=== PATIENT | female | born 1945 | race Caucasian/White ===

== ENCOUNTER 2023-09-21 12:52 | Inpatient (IN) | payer OTHER, SELFPAY ==
--- NOTE | ~2023-09-21 | CT_ITS ---
EXAMINATION: CT head/brain wo IV con CLINICAL INFORMATION: auditory hallucinations, assess for vascular dementia COMPARISON: None. TECHNIQUE: Contiguous axial imaging was performed from the skull base to vertex without intravenous contrast. Sagittal and coronal reformatted images were obtained. This CT examination was performed using dose optimization techniques as appropriate, variously including the following: * Automated exposure control * Adjustment of mA and/or kV according to patient size (this includes techniques or standardized protocols for targeted exams where dose is matched to indication/reason for exam; i.e. extremities or head) Use of iterative reconstruction technique DLP: 705 mGycm FINDINGS: Mild to moderate global cerebral volume loss with asymmetric prominence of the left hemispheric sulci which may reflect a slight predilection for the left cerebral hemisphere. There is no abnormal attenuation within the brain parenchyma. No territorial loss of huitron-white differentiation. No acute intracranial hemorrhage or extra-axial fluid collection. No mass lesion, significant mass effect, or herniation pattern. Asymmetrically prominent lateral right cerebellar folia may reflect an arachnoid cyst. Circumferential mural calcifications of the carotid siphons. Lens replacements. Patchy paranasal sinus mucosal disease. Some aerosolized secretions in the right sphenoid sinus and posterior right ethmoid air cell. No mastoid effusion. Osseous structures are intact. CT/CT head/brain wo IV con IMPRESSION: 1. Mild to moderate global cerebral volume loss with asymmetric prominence of the left hemispheric sulci which may reflect a slight predilection for the left cerebral hemisphere. Mild chronic microangiopathic changes. 2. Asymmetrically prominent lateral right cerebellar folia may reflect an arachnoid cyst. 3. Some aerosolized secretions in the right sphenoid sinus and posterior right ethmoid air cell can be correlated clinically for acute sinusitis.
[2023-09-21 12:57] VITALS: BP 110/66; PULSE 118; RESP 19; TEMP 36.6; O2SAT 95; BMI 24.1
--- NOTE | 2023-09-21 12:57 | ED_ITS ---
HPI - General Adult General Chief complaint: Psychiatric Symptoms Stated complaint: Paranoia, delusions Time Seen by Provider: 09/21/23 13:18 Source: patient Mode of arrival: ambulatory Limitations: no limitations History of Present Illness ED Provider: Herb Chambers PA-C HPI narrative: 78 year old female with PMH of psychotic depression, visual/auditory hallucinations presents to the ED via her daughter for increased auditory hallucinations, paranoia and delusions. Patient states that she is has been having increased auditory hallucinations over the last few weeks, and that they voices seem to be having conversations around her but not with her. She states that she is not endorsing any SI or HI at the moment, and that she never has in the past. She states that yesterday, her living facility was having a alliance party at night and she heard a voice tell her that someone was coming to pick her up outside. She was found outside by staff waiting for a person to get her, and staff informed her that no one was coming to pick her up. Patient states that after that she felt very confused, and that she is sick of hearing the voices . She has said she sometimes imagines her house on fire, and can see it burning. She states she flores snot want that to happen is gets nervous when she imagines that. She is currently taking medications, but med reconciliation still needs to be performed. patient is unaware of all the medications she currently takes, and informed me that her daughter (who is a nurse) would be able to help. The patient was admitted to [facility] 3-4 weeks ago for the same symptoms, and medications were adjusted. She does not complain of any other symptoms besides visual/auditory hallucinations. Denies chest pain, chest tightness, abdominal pain, N/V/D denied. Denies urinary pain, no urgency/frequency. Patient states that she occasionally has migraines but she usually will take a few Advil and sleep the whole day and they will go away . She has no physical or medical complaints at this time besides the auditory hallucinations. Daughter has arrived to ED and provided extra information. Daughter states that patient lives in a independent shelter facility. States that symptoms began about 7-8 years ago, and would complain of upstairs neighbors making too much noise and would not be able to sleep at night. She states that the patient had slept in the car 7-8 years ago to avoid the noisy neighbors, although there were no neighbors upstairs. States symptoms have gotten worse over the last 7-8 years, and that there was no formal diagnoses for years until last year when she was hospitalized at [facility] last year and was diagnosed with psychotic depression. Daughter believes that patient has had depression in her 30s and 40s, but states that patient was very self sufficient, strong and independent throughout her whole life. No history of other mental illnesses. Daughter stated willingness to admit patient to geriatric psych floor for better management and diagnoses. Daughter is providing list of medications to staff. Wellbutrin was weaned off recently and the patient is on Zyprexa. States medication adjustments were changed and overall decreased since admission to [facility]. complaint: hallucinations Relieving factors: none Exacerbating factors: none Related Data Allergies Allergy/AdvReac Type Severity Reaction Status Date / Time No Known Allergies Allergy Verified 09/21/23 13:00 Review of Systems 2 Review of Systems: Yes all other systems are reviewed and are negative [facility] Social History Social History Advance Directives: Yes Advance Directives Information Provided: Yes Advance Directives on File: No Do you have a plan to hurt others: No Plan Physical Exam ED Vital Signs: Vital Signs - 24 hr 09/21/23 12:57 Temperature 97.8 F Pulse Rate 118 H Respiratory Rate 19 Blood Pressure 110/66 Pulse Oximetry 95 Oxygen Delivery Method Room Air BMI result Body Mass Index 24.1 Appearance: Alert. Oriented X3. No acute distress. Head: normocephalic, atraumatic. Eyes: Pupils equal, round and reactive to light. ENT: Pharynx normal. No tonsillar swelling or exudate. Neck: Normal inspection. Neck supple. CVS: Tachycardic, normal rhythm. Pulses normal. Respiratory: No respiratory distress. Breath sounds normal. Abdomen: Soft and nontender. +BS x4 Skin: Skin warm and dry. Normal skin color. Normal skin turgor. No rashes. Extremities: No lower extremity edema. No joint swelling. Neuro/psych: Oriented X 3. No motor deficit. No sensory deficit. CN II-XII intact. Normal speech and cognition. Endorses auditory hallucinations of voices having conversations around her. Denies and SI or HI thoughts. Voices are not telling her to do anything or to harm herself or others. Endorses visual hallucinations once in a while. Good insight. makes eye contact. Course Course Course Narrative: This is a Rapid Medical Examination (RME) performed by Tiara Langford PA-C in triage. Full HPI, ROS, assessment and treatment plan per primary provider in the Main ED. 78 yo female hx of psychotic depression (admitted to [facility] last year, started on olanzapine) here w/ auditory hallucinations x1 mo. daughter reports patient is convinced the police are out to get her. patient has not been eating. seen at [facility] 3-4 wks ago for same w/ medication adjustments. no improvement in symptoms. the voices are not telling her to harm herself or others. denies SI/HI. denies etoh consumption, illicit drug use. denies physical complaints. no urinary symptoms. + well appearing in triage. exam nonfocal. satting 91-93% on RA, does not complaint of SOB. lungs clear. tachy to 118. reports feeling nervous. Plan: labs, UA, utox, ekg ordered Medical Decision Making Medical Decision Making MDM Narrative: 78-year-old female with a history of psychotic depression and recent inpatient psychiatric care with medication adjustments who presents to the ER from her independent living for evaluation of worsening auditory hallucinations and paranoia. Her daughter reports delusions and overall decline. She does not feel she is safe living independently at home. Her medications were recently titrated down while she was inpatient. Patient has been having increased hallucinations and delusions. On arrival to the ER she is awake and alert, endorsing auditory hallucinations. She is not suicidal or homicidal. She was tachycardic to the 110s. Daughter reports that she did not eat or drink for 24 hours because she was paranoid and afraid. She is tolerating p.o. now. She does not seem to be reacting to any internal stimuli at this time. Daughter is at the bedside to help provide history. Her lab workup showed no leukocytosis, no major metabolic derangement. She was found to have urinary tract infection. This could be contributing although unlikely to be the sole cause of her decline. Will start her on Ceftin. No evidence of sepsis. Patient was seen by the care team who is recommending inpatient level of psychiatric care. Agree with disposition. Patient placed in physician observation pending bed surgeon placement. Differential Diagnosis Differential Diagnoses: The differential diagnosis associated with the presentation includes substance induced mood disorder, acute psychosis, schizophrenia, schizoaffective disorder, PTSD, bipolar disorder, major depression with psychotic features, dementia, delirium, polypharmacy, brain tumor Admission/Observation Consideration of admission/observation: Escalation of care including admission/observation considered Consult Healthcare Provider Management of the patient was discussed with: Behavioral Health Provider Lab Data [facility] Lab Attestation statement: I reviewed the patient's lab results. No leukocytosis, UA is positive for infection 09/21/23 13:20 09/21/23 13:20 Labs: Lab Results 09/21/23 Range/Units 13:20 WBC 5.8 (4.8-10.8) X10*3/uL RBC 3.92 L (4.20-5.50) X10*6/uL Hgb 12.5 (12.0-16.0) g/dl Hct 38.3 (37.0-47.0) % MCV 97.7 (80.0-98.0) fL MCH 31.9 (27.0-33.0) pg MCHC 32.6 (31.0-35.0) g/dl RDW 14.4 (11.0-16.0) % Plt Count 317 (160-400) X10*3/uL MPV 9.8 (9.4-12.3) fL Immature Gran % (Auto) 0.3 (0.0-0.4) % Neut % (Auto) 53.7 (45-73) % Lymph % (Auto) 31.8 (20-40) % Gem % (Auto) 10.4 (2-11) % Eos % (Auto) 2.6 (0-4) % Baso % (Auto) 1.2 (0-2) % Lymph # (Auto) 1.8 (1.2-4.9) X10*3/uL Gem # (Auto) 0.6 (0.1-1.2) X10*3/uL Eos # (Auto) 0.2 (0.0-0.4) X10*3/uL Baso # (Auto) 0.1 (0.0-0.2) X10*3/uL Abs Immat Gran (auto) 0.02 (0.00-0.03) X10*3/uL Absolute Neuts (auto) 3.1 (2.0-8.3) x10*3/uL Absolute Nucleated RBC 0.000 (0.0-0.012) X10*3/uL Nucleated RBC % (auto) 0.0 (0.0-0.2) /100WBC Sodium 143 (135-145) mmol/L Potassium 4.2 (3.3-5.1) mmol/L Chloride 109 H (96-108) mmol/L Carbon Dioxide 24 (22-29) mmol/L Anion Gap 14 (12-20) BUN 12 (9-16) mg/dL Creatinine 1.24 (0.5-1.4) mg/dL Estim Creat Clear Calc 27.1 Estimated GFR 42 Random Glucose 157 H (60-115) mg/dL Calcium 9.9 (8.4-10.2) mg/dL Magnesium 2.1 (1.6-2.6) mg/dL Total Bilirubin 0.4 (0.0-1.0) mg/dL AST 18 (5-31) U/L ALT 17 (0-31) U/L Alkaline Phosphatase 121 H (39-117) U/L Total Protein 7.5 (6.5-8.0) g/dL Albumin 4.2 (3.5-5.0) g/dL Lipase 20 (8-78) U/L Urine Color Dark Yellow Urine Appearance Cloudy Urine pH 5.5 (5.0-9.0) Ur Specific [place] 1.020 (1.005-1.025) Urine Protein 30 (1+) H (Neg-Trace) mg/dL Urine Glucose (UA) Negative (Negative) mg/dL Urine Ketones Trace (Negative) mg/dL Urine Blood Negative (Negative) Urine Nitrite Negative (Negative) Ur Leukocyte Esterase Moderate (2+) H (Negative) Urine RBC 0-2 (0-2) /HPF Urine WBC 6-10 H (0-5) /HPF Ur Squamous Epith Cells 6-10 (0-2) /HPF Urine Bacteria None Seen (None Seen) Hyaline Casts >20 (0-2) /LPF Granular Casts Present Urine Opiates Screen Not Detected (Not Detect) Ur Buprenorphine Scrn Not Detected (Not Detect) ng/mL Ur Oxycodone Screen Not Detected (Not Detect) ng/mL Urine Methadone Screen Not Detected (Not Detect) ng/mL Urine Fentanyl Screen Not Detected (Not Detect) Ur Barbiturates Screen Not Detected (Not Detect) Ur Phencyclidine Scrn Not Detected (Not Detect) Ur Amphetamines Screen Not Detected (Not Detect) U Benzodiazepines Scrn Not Detected (Not Detect) Urine Cocaine Screen Not Detected (Not Detect) U Marijuana (THC) Screen Not Detected (Not Detect) Ethyl Alcohol < 10 mg/dL Independent Interpretation I performed an independent interpretation of an: EKG Interpretation: EKG with sinus tachycardia, ventricular rate 116 beats per minute, no ST segment elevations or depressions, normal QTC Independent Historian Clinical information obtained from an independent historian. History obtained from or confirmed by: Other (Adult daughter at the bedside) External Record Review External record reviewed: Outpatient record Tests considered The following testing was considered but not selected: CT of the head was considered however she does have a history of this type of behavior for the last several years, doubt organic cause Prescription Management I considered prescription management with: Antibiotic and Other (Antipsychotic) Chronic Conditions Patient?s care impacted by: Other (Psychotic depression) Social Determinants Patient?s care significantly limited by Social Determinants of Health including: Problems related to primary support group Critical Care Time Critical Care Time Critical Care Time: No Discharge Plan Discharge Clinical Impression: Psychotic depression Patient Disposition: Still a Patient Print Language: Cape Verdean
--- NOTE | 2023-09-21 13:01 | ECG_ITS ---
Test Reason : tacky Blood Pressure : / mmHG Vent. Rate : 116 BPM Atrial Rate : 116 BPM P-R Int : 134 ms QRS Dur : 074 ms QT Int : 302 ms P-R-T Axes : 056 009 032 degrees QTc Int : 419 ms Sinus tachycardia with Premature supraventricular complexes Cannot rule out Anterior infarct , age undetermined Abnormal ECG No previous ECGs available Referred By: Di Langford Electronically Signed By:Denzel Smith
[2023-09-21 13:29] LABS: MANUAL DIFF FLAG NO
[2023-09-21 13:34] LABS: Basophils Absolute Auto 0.1 X10*3/uL (0.0-0.2); Basophils Percent Auto 1.2 % (0-2); Eosinophils Absolute Auto 0.2 X10*3/uL (0.0-0.4); Eosinophils Percent Auto 2.6 % (0-4); Hematocrit 38.3 % (37.0-47.0); Hemoglobin 12.5 g/dl (12.0-16.0); Imm Gran Abs Auto 0.02 X10*3/uL (0.00-0.03); Imm Gran Pct Auto 0.3 % (0.0-0.4); Lymphocytes Absolute Auto 1.8 X10*3/uL (1.2-4.9); Lymphocytes Percent Auto 31.8 % (20-40); Mean Corpuscular HGB Conc 32.6 g/dl (31.0-35.0); Mean Corpuscular Hemoglobin 31.9 pg (27.0-33.0); Mean Corpuscular Volume 97.7 fL (80.0-98.0); Mean Platelet Volume 9.8 fL (9.4-12.3); Monocytes Absolute Auto 0.6 X10*3/uL (0.1-1.2); Monocytes Percent Auto 10.4 % (2-11); Neutrophils Absolute Auto 3.1 x10*3/uL (2.0-8.3); Neutrophils Percent Auto 53.7 % (45-73); Platelet Count 317 X10*3/uL (160-400); Red Blood Count 3.92 X10*6/uL (4.20-5.50); Red Cell Distribution Width 14.4 % (11.0-16.0); White Blood Count 5.8 X10*3/uL (4.8-10.8)
[2023-09-21 13:35] LABS: Appearance Urine Cloudy; Color Urine Dark Yellow; Glucose Urine UA Negative (Negative); Leukocyte Esterase Urine Moderate (2+) (Negative); Nitrite Urine Negative (Negative); PH 5.5 (5.0-9.0); UMIC TRIGGER UACC YES; Urine Blood Negative (Negative); Urine Ketones Trace mg/dL (Negative); Urine Protein 30 (1+) mg/dL (Neg-Trace)
[2023-09-21 13:48] LABS: Amphetamine Screen Urine Not Detected (Not Detect); Bacteria Urine None Seen (None Seen); Barbiturates, Urine Not Detected (Not Detect); Benzodiazepines Screen Urine Not Detected (Not Detect); Buprenorphine Scr Not Detected (Not Detect); Cannabinoid Screen Urine Not Detected (Not Detect); Cocaine Screen Urine Not Detected (Not Detect); Fentanyl, urine Not Detected (Not Detect); Granular Casts Urine Present; Hyaline Casts Urine >20 /LPF (0-2); Methadone Screen, Urine Not Detected (Not Detect); Opiate Screen Urine Not Detected (Not Detect); Oxycodone Screen Urine Not Detected (Not Detect); Phencyclidine Screen Urine Not Detected (Not Detect); RBC Urine 0-2 /HPF (0-2); UACC Culture Trigger YES
[2023-09-21 13:53] LABS: Alanine Aminotransferase 17 U/L (0-31); Albumin Level 4.2 g/dL (3.5-5.0); Alkaline Phosphatase 121 U/L (39-117); Anion Gap 14 (12-20); Aspartate Amino Transferase 18 U/L (5-31); Bilirubin Total 0.4 mg/dL (0.0-1.0); Blood Urea Nitrogen 12 mg/dL (9-16); Calcium 9.9 mg/dL (8.4-10.2); Carbon Dioxide 24 mmol/L (22-29); Chloride 109 mmol/L (96-108); Creatinine Clr Calc Pharmacy 27.1; Estimated Glomerular Filt Rate 42; Ethanol < 10 mg/dL; Glucose Random 157 mg/dL (60-115); Lipase 20 U/L (8-78); Magnesium 2.1 mg/dL (1.6-2.6); Potassium 4.2 mmol/L (3.3-5.1); Sodium 143 mmol/L (135-145); Total Protein 7.5 g/dL (6.5-8.0)
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
[2023-09-21] MEDS: cefuroxime axetiL 250 MG TABLET PO (16:58)
[2023-09-21 17:42] VITALS: BP 134/89; PULSE 85; RESP 18; TEMP 36.2; O2SAT 94
--- NOTE | 2023-09-21 18:27 | PC.NURSE ---
Late entry: Patient calm and cooperative with microsoft exchange architect, verbalizes concerns over hearing voices talking in the back of her head. patient denies SI/HI/VH. Patient is alert and oriented x3, skin pwd, respirations even and unlabored, easily directable. Patient offers no complaints to this RN. Aware of plan of care for inpatient admission
[2023-09-21 18:40] VITALS: BP 127/75; PULSE 111; RESP 16; TEMP 35.9; O2SAT 96
[2023-09-21 18:54] VITALS: BMI 24.2
--- NOTE | 2023-09-21 22:40 | PC.ADMIT ---
Patient is an 78 year old female admitted to S1 on 09/21/2023 at 1830 from [facility] ED on a CV for increased auditory hallucinations, paranoia and delusions. The night prior to coming in, patient admits to hearing a voice telling her that they were coming to pick her up, and she was found standing outside of her retirement facility. Patient has had 2 inpatient hospitalizations for the same symptoms, most recent at [facility] about one month ago, and [facility] in 2022. Patient brought to unit, vital signs and skin check and changeover completed by previous shift. Patient is visible in the milieu. She is hard of hearing, reports that her hearing aids are not with her. She also has glasses and upper dentures. She is endorsing anxiety and depression. Denies SI/HI/AH/VH currently. She is gladys for safety. She is cooperative with the admission process, soft spoken. Signed releases of information for daughter, PCP, psychiatrist, etc. Oriented to milieu.
[2023-09-22 08:00] VITALS: BP 126/68; PULSE 101; RESP 18; TEMP 36.4; O2SAT 95
[2023-09-22 08:27] LABS: Alanine Aminotransferase 18 U/L (0-31); Albumin Level 4.3 g/dL (3.5-5.0); Alkaline Phosphatase 121 U/L (39-117); Anion Gap 16 (12-20); Aspartate Amino Transferase 18 U/L (5-31); Bilirubin Total 0.4 mg/dL (0.0-1.0); Blood Urea Nitrogen 14 mg/dL (9-16); Calcium 9.9 mg/dL (8.4-10.2); Carbon Dioxide 26 mmol/L (22-29); Chloride 108 mmol/L (96-108); Cholesterol 181 mg/dL (<200); Creatinine Clr Calc Pharmacy 31.8; Estimated Glomerular Filt Rate 50; Glucose Fasting 112 mg/dL (60-99); HDL Cholesterol 83 mg/dL (>40); LDL Cholesterol Calculated 80 mg/dL (<100); Potassium 4.6 mmol/L (3.3-5.1); Sodium 145 mmol/L (135-145); Total Protein 7.6 g/dL (6.5-8.0); Triglycerides 90 mg/dL (<150)
[2023-09-22] MEDS: OLANZapine 10 MG TABLET PO ×2 (09:42→21:22)
[2023-09-22] MEDS: DULoxetine HCl 60 MG CAPSULE.DR PO (09:42)
[2023-09-22] MEDS: Ascorbic Acid 500 MG TABLET 1000 MG PO (09:42)
--- NOTE | 2023-09-22 09:47 | HO.PSYADMNOT ---
[facility] Date of Service: 09/22/23 Chief Complaint: Psychosis Sources of Information: patient interviewed, chart reviewed and crisis/core team assessment reviewed HPI Subjective Notes: Gruber Warning and Section 12B Narrative: The patient is an 78-year-old female, , mother of 3 adult children, living in an assisted living facility referred over emergency room due to auditory hallucinations. Apparently, the patient was admitted at [facility] a few weeks ago for similar presentation her medications were adjusted. The day of the admission to the hospital, the patient went out on the porch since the voices were telling her that she is going to be picked up. Staff came and she was confused. She was complaining that she had been hearing voices talking among themselves but not about her and she had been very tired about this symptom. Later on, her daughter came and reported that the patient lives in independent senior facility her symptoms start 7 or 8 years ago and she used to have some symptoms that they are bearable but in the last months and has been worse. On interview, the patient reported that she is not hearing voices at this moment, she is pleasant cooperative she acknowledged that in the past more than 30 years ago she suffered from depression. She is a very poor historian unable to provide more details but so far she is able to contract for safety. Past Psychiatric History: The patient reported that she suffered from depression on her 30s. She has never been admitted into the hospital for psychiatric reasons until recently. Apparently on 2022 she was admitted at [facility] for auditory hallucinations. Her psychotic symptoms have started 7 or 8 years ago. Medical Evaluation Reviewed: Yes PMFSH Family History: Denies Social History: The patient is the oldest of 2 children, her milestones were achieved at expected duration she attended regular school, she graduated from high school. She got at the age of 15 and she got , she is the mother of 3 adult children. She lives in an independent living facility. Substance History: Denies Trauma History: Denies Diagnostics Vital Signs (24Hr): Vital Signs - 24 hr 09/21/23 12:57 09/21/23 17:42 09/21/23 18:40 Temperature 97.8 F 97.2 F 96.7 F L Pulse Rate 118 H 85 111 H Respiratory Rate 19 18 16 Blood Pressure 110/66 134/89 127/75 Pulse Oximetry 95 94 96 Oxygen Delivery Method Room Air Room Air Room Air BMI result Body Mass Index 24.2 Labs 09/21/23 13:20 09/22/23 07:56 Labs: Laboratory Results - last 48 hr 09/21/23 09/22/23 13:20 07:56 WBC 5.8 RBC 3.92 L Hgb 12.5 Hct 38.3 MCV 97.7 MCH 31.9 MCHC 32.6 RDW 14.4 Plt Count 317 MPV 9.8 Immature Gran % (Auto) 0.3 Neut % (Auto) 53.7 Lymph % (Auto) 31.8 [place] % (Auto) 10.4 Eos % (Auto) 2.6 Baso % (Auto) 1.2 Lymph # (Auto) 1.8 [place] # (Auto) 0.6 Eos # (Auto) 0.2 Baso # (Auto) 0.1 Abs Immat Gran (auto) 0.02 Absolute Neuts (auto) 3.1 Absolute Nucleated RBC 0.000 Nucleated RBC % (auto) 0.0 Sodium 143 145 Potassium 4.2 4.6 Chloride 109 H 108 Carbon Dioxide 24 26 Anion Gap 14 16 BUN 12 14 Creatinine 1.24 1.06 Estim Creat Clear Calc 27.1 31.8 Estimated GFR 42 50 Random Glucose 157 H Fasting Glucose 112 H Calcium 9.9 9.9 Magnesium 2.1 Total Bilirubin 0.4 0.4 AST 18 18 ALT 17 18 Alkaline Phosphatase 121 H 121 H Total Protein 7.5 7.6 Albumin 4.2 4.3 Triglycerides 90 Cholesterol 181 LDL Cholesterol, Calc 80 HDL Cholesterol 83 Lipase 20 Urine Color Dark Yellow Urine Appearance Cloudy Urine pH 5.5 Ur Specific [place] 1.020 Urine Protein 30 (1+) H Urine Glucose (UA) Negative Urine Ketones Trace Urine Blood Negative Urine Nitrite Negative Ur Leukocyte Esterase Moderate (2+) H Urine RBC 0-2 Urine WBC 6-10 H Ur Squamous Epith Cells 6-10 Urine Bacteria None Seen Hyaline Casts >20 Granular Casts Present Urine Opiates Screen Not Detected Ur Buprenorphine Scrn Not Detected Ur Oxycodone Screen Not Detected Urine Methadone Screen Not Detected Urine Fentanyl Screen Not Detected Ur Barbiturates Screen Not Detected Ur Phencyclidine Scrn Not Detected Ur Amphetamines Screen Not Detected U Benzodiazepines Scrn Not Detected Urine Cocaine Screen Not Detected U Marijuana (THC) Screen Not Detected Ethyl Alcohol < 10 Meds/Allergies Meds Home Medications ?Medication ?Instructions ?Recorded ?Confirmed ?Type ascorbic acid (vitamin C) 1,000 mg 1,000 mg PO DAILY 09/21/23 09/21/23 History tablet (Vitamin C) atorvastatin 10 mg tablet 10 mg PO BEDTIME 09/21/23 09/21/23 History bupropion HCl 75 mg tablet 75 mg PO BID 09/21/23 09/21/23 History duloxetine 60 mg capsule,delayed 60 mg PO DAILY 09/21/23 09/21/23 History release olanzapine 10 mg tablet 10 mg PO BID psychosis 09/21/23 09/21/23 History secukinumab 150 mg/mL subcutaneous 150 mg subcut Q28D 09/21/23 09/22/23 History pen injector (Cosentyx Pen 300 mg/2 Pens () Allergies Allergies Allergy/AdvReac Type Severity Reaction Status Date / Time No Known Allergies Allergy Verified 09/21/23 13:00 Mental Status Exam Mental Status Exam Patient Appearance: Well Grooomed and Appropriate Patient Orientation: Person and Situation Level of Consciousness: Awake and Appropriate Patient Behavior: Guarded and Passive Mood Description: Withdrawn Affect Description: Constricted Patient Cognition Impaired: Yes Ability to Follow Directions: Good Speech Pattern: Clear Hallucinations: Auditory Delusions: Ideas of Reference Thought Process: Distracted and Slowed Thinking Thought Content: positive for [place] and positive for Poverty of Content Judgement: Good Assessment & Plan Assessment & Plan (1) Psychosis: Status: Acute Code(s): F29 - Unspecified psychosis not due to a substance or known physiological condition Plan The patient is an elderly female with a past history of auditory hallucinations for the last 7 or 8 years with a prior admission into the hospital at [facility]. She had a past history of depression when she was younger hearing Plan 1. Gather collateral information. The patient is a very poor historian. 2. We will continue with Zyprexa 10 mg p.o. b.i.d. as per med reconciliation form. 3. Regular blood work. 4. 15 minute checks since the patient is able to contract for safety. Patient educated on: diagnosis Reason for continued inpatient stay Substantial Risk for: inability to function, rapid decompensation and med/psych decompensation Statement Statement: I have reviewed the history and physical and performed a pertinent examination on my patient. No changes have occurred unless specified. If the History and Physical was not performed prior to admission, the Hospitalist's service will be consulted for completing the admission physical. Time Spent With Patient Time: Total time managing care of this patient today __45__ minutes.
[2023-09-22] MEDS: buPROPion HCL 75 MG TABLET PO ×2 (11:32→21:22)
--- NOTE | 2023-09-22 13:55 | P.EN_ITS ---
Event Note Date of Service: 09/22/23 Event Note: Patient is an 78-year-old female with a PMH significant for HLD, depression anxiety who was admitted to [facility] psych increased auditory hallucinations, paranoia, and delusions. Hospitalist consult for question of UTI. Patient was initially diagnosed with possible UTI in the ED and started on empiric cefuroxime 250 mg b.i.d.. Urine cultures have since come back and show mixed bacterial denise characteristic of urogenital contamination. UA itself was not convincingly positive, showing moderate leukocyte esterase, but only 6-10 wbc's and 6-10 squamous epithelial cells with no bacteria seen. Urine culture negative for acute UTI and patient can discontinue empiric antibiotics. Time Spent With Patient Time: Total time managing care of this patient today ____ minutes.
[2023-09-22 20:00] VITALS: BP 101/55; PULSE 97; RESP 16; TEMP 36.6; O2SAT 94
[2023-09-22] MEDS: Atorvastatin Calcium 10 MG TABLET PO (21:22)
[2023-09-22] MEDS: traZODone HCL 50 MG TABLET PO (21:22)
[2023-09-23] MEDS: Acetaminophen 325 MG TABLET 650 MG PO (06:31)
[2023-09-23 08:00] VITALS: BP 110/61; PULSE 99; RESP 17; TEMP 36.5; O2SAT 95
--- NOTE | 2023-09-23 08:26 | HO.PSYCHPN ---
Subjective Subjective Date of Service: 09/23/23 Reason For Visit: Psychosis Subjective Notes: Conditional Voluntary Interim History: Pt reports hearing voices and thinking that someone is trying to hurt her. Some insight that maybe this is not happening. No SI/HI. we discussed dc wellbutrin due to psychosis. continue cymbalta and olanzapine. Review of Systems Review of Systems Yes all other systems are reviewed and are negative Mental Status Exam Mental Status Exam Patient Appearance: Well Grooomed and Appropriate Patient Orientation: Person and Situation Level of Consciousness: Awake and Appropriate Patient Behavior: Guarded and Passive Mood Description: Withdrawn Affect Description: Constricted Patient Cognition Impaired: Yes Ability to Follow Directions: Good Speech Pattern: Clear Diagnostics Vital Signs (24Hr): Vital Signs - 24 hr 09/22/23 20:00 Temperature 98 F Pulse Rate 97 Respiratory Rate 16 Blood Pressure 101/55 L Pulse Oximetry 94 Oxygen Delivery Method Room Air BMI result Body Mass Index 24.2 Labs 09/21/23 13:20 09/22/23 07:56 Labs: Laboratory Results - last 48 hr 09/21/23 09/22/23 13:20 07:56 WBC 5.8 RBC 3.92 L Hgb 12.5 Hct 38.3 MCV 97.7 MCH 31.9 MCHC 32.6 RDW 14.4 Plt Count 317 MPV 9.8 Immature Gran % (Auto) 0.3 Neut % (Auto) 53.7 Lymph % (Auto) 31.8 [place] % (Auto) 10.4 Eos % (Auto) 2.6 Baso % (Auto) 1.2 Lymph # (Auto) 1.8 [place] # (Auto) 0.6 Eos # (Auto) 0.2 Baso # (Auto) 0.1 Abs Immat Gran (auto) 0.02 Absolute Neuts (auto) 3.1 Absolute Nucleated RBC 0.000 Nucleated RBC % (auto) 0.0 Sodium 143 145 Potassium 4.2 4.6 Chloride 109 H 108 Carbon Dioxide 24 26 Anion Gap 14 16 BUN 12 14 Creatinine 1.24 1.06 Estim Creat Clear Calc 27.1 31.8 Estimated GFR 42 50 Random Glucose 157 H Fasting Glucose 112 H Calcium 9.9 9.9 Magnesium 2.1 Total Bilirubin 0.4 0.4 AST 18 18 ALT 17 18 Alkaline Phosphatase 121 H 121 H Total Protein 7.5 7.6 Albumin 4.2 4.3 Triglycerides 90 Cholesterol 181 LDL Cholesterol, Calc 80 HDL Cholesterol 83 Lipase 20 Urine Color Dark Yellow Urine Appearance Cloudy Urine pH 5.5 Ur Specific [place] 1.020 Urine Protein 30 (1+) H Urine Glucose (UA) Negative Urine Ketones Trace Urine Blood Negative Urine Nitrite Negative Ur Leukocyte Esterase Moderate (2+) H Urine RBC 0-2 Urine WBC 6-10 H Ur Squamous Epith Cells 6-10 Urine Bacteria None Seen Hyaline Casts >20 Granular Casts Present Urine Opiates Screen Not Detected Ur Buprenorphine Scrn Not Detected Ur Oxycodone Screen Not Detected Urine Methadone Screen Not Detected Urine Fentanyl Screen Not Detected Ur Barbiturates Screen Not Detected Ur Phencyclidine Scrn Not Detected Ur Amphetamines Screen Not Detected U Benzodiazepines Scrn Not Detected Urine Cocaine Screen Not Detected U Marijuana (THC) Screen Not Detected Ethyl Alcohol < 10 Medications Medications Current Medications Acetaminophen (Acetaminophen 325 Mg Tablet) 650 mg PO Q6H PRN PRN Reason: Headache/Pain Mild Scale (1-3) Last Admin: 09/23/23 06:31 Dose: 650 mg Al Hydroxide/Mg Hydroxide (Magnesium Hydrox/Alum Hydrox 30 Ml Oral.Susp) 30 ml PO Q6H PRN PRN Reason: Heartburn/Nausea Ascorbic Acid (Ascorbic Acid 500 Mg Tablet) 1,000 mg PO DAILY [facility] Last Admin: 09/22/23 09:42 Dose: 1,000 mg Atorvastatin Calcium (Atorvastatin Calcium 10 Mg Tablet) 10 mg PO BEDTIME [facility] Last Admin: 09/22/23 21:22 Dose: 10 mg Bupropion HCl (Bupropion Hcl 75 Mg Tablet) 75 mg PO BID [facility] Last Admin: 09/22/23 21:22 Dose: 75 mg Duloxetine HCl (Duloxetine Hcl 60 Mg Capsule.Dr) 60 mg PO DAILY [facility] Last Admin: 09/22/23 09:42 Dose: 60 mg Hydroxyzine HCl (Hydroxyzine Hcl 25 Mg Tablet) 25 mg PO Q6H PRN PRN Reason: Anxiety Magnesium Hydroxide (Milk Of Magnesia 30 Ml Oral.Susp) 30 ml PO DAILY PRN PRN Reason: Constipation Non-Formulary Medication (Secukinumab [Cosentyx Pen (2 Pens)]) 150 mg SUBCUT Q28D [facility] Olanzapine (Olanzapine 10 Mg Tablet) 10 mg PO BID [facility] Last Admin: 09/22/23 21:22 Dose: 10 mg Trazodone HCl (Trazodone Hcl 50 Mg Tablet) 50 mg PO BEDTIME MRX1 PRN PRN Reason: Insomnia Last Admin: 09/22/23 21:22 Dose: 50 mg Allergies Allergies Allergy/AdvReac Type Severity Reaction Status Date / Time No Known Allergies Allergy Verified 09/21/23 13:00 Assessment & Plan Assessment & Plan (1) Psychosis: Status: Acute Code(s): F29 - Unspecified psychosis not due to a substance or known physiological condition Plan The patient is an elderly female with a past history of auditory hallucinations for the last 7 or 8 years with a prior admission into the hospital at [facility]. She had a past history of depression when she was younger hearing Plan 09/22 dc wellbutrin as it may exacerbate psychosis. continue olanzapine. Reason for continued inpatient stay Substantial Risk for: inability to function Time Spent With Patient Time: Total time managing care of this patient today ____ minutes.
[2023-09-23] MEDS: Ascorbic Acid 500 MG TABLET 1000 MG PO (09:02)
[2023-09-23] MEDS: OLANZapine 10 MG TABLET PO ×2 (09:03→22:07)
[2023-09-23] MEDS: buPROPion HCL 75 MG TABLET PO ×2 (09:03→22:07)
[2023-09-23] MEDS: DULoxetine HCl 60 MG CAPSULE.DR PO (09:03)
[2023-09-23 20:00] VITALS: BP 116/60; PULSE 92; RESP 16; TEMP 36.4; O2SAT 96
[2023-09-23] MEDS: Atorvastatin Calcium 10 MG TABLET PO (22:07)
[2023-09-24 08:08] VITALS: BP 111/61; PULSE 96; RESP 16; TEMP 36.1; O2SAT 94
[2023-09-24] MEDS: OLANZapine 10 MG TABLET PO ×2 (08:09→20:47)
[2023-09-24] MEDS: DULoxetine HCl 60 MG CAPSULE.DR PO (08:09)
[2023-09-24] MEDS: buPROPion HCL 75 MG TABLET PO (08:09)
[2023-09-24] MEDS: Ascorbic Acid 500 MG TABLET 1000 MG PO (08:12)
[2023-09-24 20:00] VITALS: BP 119/60; PULSE 96; RESP 16; TEMP 36.2; O2SAT 96
--- NOTE | 2023-09-24 20:03 | HO.PSYCHPN ---
Subjective Subjective Date of Service: 09/24/23 Reason For Visit: Psychosis Interim History: Pt reports hearing voices and thinking that someone is trying to hurt her. Some insight that maybe this is not happening. No SI/HI. we discussed dc wellbutrin due to psychosis. continue cymbalta and olanzapine. Review of Systems Review of Systems Yes all other systems are reviewed and are negative Mental Status Exam Mental Status Exam Patient Appearance: Well Grooomed and Appropriate Patient Orientation: Person and Situation Level of Consciousness: Awake and Appropriate Patient Behavior: Guarded and Passive Mood Description: Withdrawn Affect Description: Constricted Patient Cognition Impaired: Yes Ability to Follow Directions: Good Speech Pattern: Clear Diagnostics Vital Signs (24Hr): Vital Signs - 24 hr 09/24/23 08:08 Temperature 97.0 F Pulse Rate 96 Respiratory Rate 16 Blood Pressure 111/61 Pulse Oximetry 94 Oxygen Delivery Method Room Air BMI result Body Mass Index 24.2 Labs 09/21/23 13:20 09/22/23 07:56 Medications Medications Current Medications Acetaminophen (Acetaminophen 325 Mg Tablet) 650 mg PO Q6H PRN PRN Reason: Headache/Pain Mild Scale (1-3) Last Admin: 09/23/23 06:31 Dose: 650 mg Al Hydroxide/Mg Hydroxide (Magnesium Hydrox/Alum Hydrox 30 Ml Oral.Susp) 30 ml PO Q6H PRN PRN Reason: Heartburn/Nausea Ascorbic Acid (Ascorbic Acid 500 Mg Tablet) 1,000 mg PO DAILY [facility] Last Admin: 09/24/23 08:12 Dose: 1,000 mg Atorvastatin Calcium (Atorvastatin Calcium 10 Mg Tablet) 10 mg PO BEDTIME [facility] Last Admin: 09/23/23 22:07 Dose: 10 mg Duloxetine HCl (Duloxetine Hcl 60 Mg Capsule.Dr) 60 mg PO DAILY [facility] Last Admin: 09/24/23 08:09 Dose: 60 mg Hydroxyzine HCl (Hydroxyzine Hcl 25 Mg Tablet) 25 mg PO Q6H PRN PRN Reason: Anxiety Magnesium Hydroxide (Milk Of Magnesia 30 Ml Oral.Susp) 30 ml PO DAILY PRN PRN Reason: Constipation Non-Formulary Medication (Secukinumab [Cosentyx Pen (2 Pens)]) 150 mg SUBCUT Q28D [facility] Olanzapine (Olanzapine 10 Mg Tablet) 10 mg PO BID [facility] Last Admin: 09/24/23 08:09 Dose: 10 mg Trazodone HCl (Trazodone Hcl 50 Mg Tablet) 50 mg PO BEDTIME MRX1 PRN PRN Reason: Insomnia Last Admin: 09/22/23 21:22 Dose: 50 mg Allergies Allergies Allergy/AdvReac Type Severity Reaction Status Date / Time No Known Allergies Allergy Verified 09/21/23 13:00 Assessment & Plan Assessment & Plan (1) Psychosis: Status: Acute Code(s): F29 - Unspecified psychosis not due to a substance or known physiological condition Plan The patient is an elderly female with a past history of auditory hallucinations for the last 7 or 8 years with a prior admission into the hospital at [facility]. She had a past history of depression when she was younger hearing Plan 09/23 continue tx. wellbutrin dced. Reason for continued inpatient stay Substantial Risk for: inability to function Time Spent With Patient Time: Total time managing care of this patient today ____ minutes.
[2023-09-24] MEDS: Atorvastatin Calcium 10 MG TABLET PO (20:47)
[2023-09-24] MEDS: traZODone HCL 50 MG TABLET PO (20:47)
[2023-09-25 08:00] VITALS: BP 132/77; PULSE 79; RESP 16; TEMP 36.3; O2SAT 96
[2023-09-25] MEDS: Ascorbic Acid 500 MG TABLET 1000 MG PO (08:26)
[2023-09-25] MEDS: OLANZapine 10 MG TABLET PO ×2 (08:27→20:18)
[2023-09-25] MEDS: DULoxetine HCl 60 MG CAPSULE.DR PO (08:29)
--- NOTE | 2023-09-25 11:04 | P.PNPSI_ITS ---
Subjective Subjective Date of Service: 09/25/23 Reason For Visit: Psychosis Subjective Notes: Conditional Voluntary Interim History: The nursing staff reported the patient slept well last night she denies current auditory hallucinations but a day before, she admitted some auditory hallucinations. The patient is able to recognize internal stimuli. On interview the patient denies new symptoms she is pleasant, cooperative we are going to the CT scan head without contrast today. Mental Status Exam Mental Status Exam Patient Appearance: Well Grooomed and Appropriate Patient Orientation: Person and Situation Level of Consciousness: Awake and Appropriate Patient Behavior: Guarded and Passive Mood Description: Withdrawn Affect Description: Constricted Patient Cognition Impaired: Yes Ability to Follow Directions: Good Speech Pattern: Clear Hallucinations: None Delusions: Not Present Thought Process: Distracted and Slowed Thinking Thought Content: positive for [place] and positive for Poverty of Content Judgement: Fair Diagnostics Vital Signs (24Hr): Vital Signs - 24 hr 09/24/23 20:00 09/25/23 08:00 Temperature 97.1 F 97.3 F Pulse Rate 96 79 Respiratory Rate 16 16 Blood Pressure 119/60 132/77 Pulse Oximetry 96 96 Oxygen Delivery Method Room Air Room Air BMI result Body Mass Index 24.2 Labs 09/21/23 13:20 09/22/23 07:56 Medications Medications Current Medications Acetaminophen (Acetaminophen 325 Mg Tablet) 650 mg PO Q6H PRN PRN Reason: Headache/Pain Mild Scale (1-3) Last Admin: 09/23/23 06:31 Dose: 650 mg Al Hydroxide/Mg Hydroxide (Magnesium Hydrox/Alum Hydrox 30 Ml Oral.Susp) 30 ml PO Q6H PRN PRN Reason: Heartburn/Nausea Ascorbic Acid (Ascorbic Acid 500 Mg Tablet) 1,000 mg PO DAILY [facility] Last Admin: 09/25/23 08:26 Dose: 1,000 mg Atorvastatin Calcium (Atorvastatin Calcium 10 Mg Tablet) 10 mg PO BEDTIME [facility] Last Admin: 09/24/23 20:47 Dose: 10 mg Duloxetine HCl (Duloxetine Hcl 60 Mg Capsule.Dr) 60 mg PO DAILY [facility] Last Admin: 09/25/23 08:29 Dose: 60 mg Hydroxyzine HCl (Hydroxyzine Hcl 25 Mg Tablet) 25 mg PO Q6H PRN PRN Reason: Anxiety Magnesium Hydroxide (Milk Of Magnesia 30 Ml Oral.Susp) 30 ml PO DAILY PRN PRN Reason: Constipation Non-Formulary Medication (Secukinumab [Cosentyx Pen (2 Pens)]) 150 mg SUBCUT Q28D [facility] Olanzapine (Olanzapine 10 Mg Tablet) 10 mg PO BID [facility] Last Admin: 09/25/23 08:27 Dose: 10 mg Trazodone HCl (Trazodone Hcl 50 Mg Tablet) 50 mg PO BEDTIME MRX1 PRN PRN Reason: Insomnia Last Admin: 09/24/23 20:47 Dose: 50 mg Allergies Allergies Allergy/AdvReac Type Severity Reaction Status Date / Time No Known Allergies Allergy Verified 09/21/23 13:00 Assessment & Plan Assessment & Plan (1) Psychosis: Status: Acute Code(s): F29 - Unspecified psychosis not due to a substance or known physiological condition Plan The patient is an elderly female with a past history of auditory hallucinations for the last 7 or 8 years with a prior admission into the hospital at [facility]. She had a past history of depression when she was younger hearing Plan 1. Continue with Zyprexa 10 mg p.o. b.i.d.. 2. Continue [address] scan without contrast head on September 24. Reason for continued inpatient stay Substantial Risk for: inability to function, rapid decompensation and med/psych decompensation Time Spent With Patient Time: Total time managing care of this patient today _20___ minutes.
[2023-09-25 20:00] VITALS: BP 102/53; PULSE 106; RESP 18; TEMP 36.3; O2SAT 94
[2023-09-25] MEDS: Atorvastatin Calcium 10 MG TABLET PO (20:18)
[2023-09-25] MEDS: traZODone HCL 50 MG TABLET PO (20:18)
[2023-09-26 08:09] VITALS: BP 116/59; PULSE 109; RESP 17; TEMP 36.1; O2SAT 95
[2023-09-26] MEDS: OLANZapine 10 MG TABLET PO ×2 (08:11→21:16)
[2023-09-26] MEDS: DULoxetine HCl 60 MG CAPSULE.DR PO (08:11)
[2023-09-26] MEDS: Ascorbic Acid 500 MG TABLET 1000 MG PO (08:11)
--- NOTE | 2023-09-26 16:05 | HO.PSYCHPN ---
Subjective Subjective Date of Service: 09/26/23 Reason For Visit: Psychosis Subjective Notes: Conditional Voluntary Interim History: The nursing staff reported the patient had been pleasant cooperative, fully compliant with treatment. She complaining of sporadic auditory hallucinations but they were not talking about her. On interview the patient reported that she was been hearing voices only at night. She agreed to start a low dose of haloperidol at night. We reviewed the CT scan of yesterday apparently the patient has microvascular disease but not a focal lesion. Mental Status Exam Mental Status Exam Patient Appearance: Appropriate Patient Orientation: Person and Situation Level of Consciousness: Awake and Appropriate Patient Behavior: Guarded and Passive Mood Description: Withdrawn Affect Description: Constricted Patient Cognition Impaired: Yes Ability to Follow Directions: Good Speech Pattern: Clear Hallucinations: Auditory Delusions: Ideas of Reference Thought Process: Distracted and Slowed Thinking Thought Content: positive for [place] and positive for Poverty of Content Judgement: Good Diagnostics Vital Signs (24Hr): Vital Signs - 24 hr 09/25/23 20:00 09/26/23 08:09 Temperature 97.4 F 97 F Pulse Rate 106 H 109 H Respiratory Rate 18 17 Blood Pressure 102/53 L 116/59 L Pulse Oximetry 94 95 Oxygen Delivery Method Room Air Room Air BMI result Body Mass Index 24.2 Labs 09/21/23 13:20 09/22/23 07:56 Imaging Radiology Impressions: ITS Impressions Head CT 09/25/23 11:25 IMPRESSION: 1. Mild to moderate global cerebral volume loss with asymmetric prominence of the left hemispheric sulci which may reflect a slight predilection for the left cerebral hemisphere. Mild chronic microangiopathic changes. 2. Asymmetrically prominent lateral right cerebellar folia may reflect an arachnoid cyst. 3. Some aerosolized secretions in the right sphenoid sinus and posterior right ethmoid air cell can be correlated clinically for acute sinusitis. Medications Medications Current Medications Acetaminophen (Acetaminophen 325 Mg Tablet) 650 mg PO Q6H PRN PRN Reason: Headache/Pain Mild Scale (1-3) Last Admin: 09/23/23 06:31 Dose: 650 mg Al Hydroxide/Mg Hydroxide (Magnesium Hydrox/Alum Hydrox 30 Ml Oral.Susp) 30 ml PO Q6H PRN PRN Reason: Heartburn/Nausea Ascorbic Acid (Ascorbic Acid 500 Mg Tablet) 1,000 mg PO DAILY [facility] Last Admin: 09/26/23 08:11 Dose: 1,000 mg Atorvastatin Calcium (Atorvastatin Calcium 10 Mg Tablet) 10 mg PO BEDTIME [facility] BEDS AT [facility] Last Admin: 09/25/23 20:18 Dose: 10 mg Duloxetine HCl (Duloxetine Hcl 60 Mg Capsule.Dr) 60 mg PO DAILY [facility] 234 BEDS AT [facility] Last Admin: 09/26/23 08:11 Dose: 60 mg Hydroxyzine HCl (Hydroxyzine Hcl 25 Mg Tablet) 25 mg PO Q6H PRN PRN Reason: Anxiety Magnesium Hydroxide (Milk Of Magnesia 30 Ml Oral.Susp) 30 ml PO DAILY PRN PRN Reason: Constipation Non-Formulary Medication (Secukinumab [Cosentyx Pen (2 Pens)]) 150 mg SUBCUT Q28D [facility]S [facility] 234 BEDS AT [facility] Olanzapine (Olanzapine 10 Mg Tablet) 10 mg PO BID [facility] 234 BEDS AT [facility] Last Admin: 09/26/23 08:11 Dose: 10 mg Trazodone HCl (Trazodone Hcl 50 Mg Tablet) 50 mg PO BEDTIME MRX1 PRN PRN Reason: Insomnia Last Admin: 09/25/23 20:18 Dose: 50 mg Allergies Allergies Allergy/AdvReac Type Severity Reaction Status Date / Time No Known Allergies Allergy Verified 09/21/23 13:00 Assessment & Plan Assessment & Plan (1) Psychosis: Status: Acute Code(s): F29 - Unspecified psychosis not due to a substance or known physiological condition Plan The patient is an elderly female with a past history of auditory hallucinations for the last 7 or 8 years with a prior admission into the hospital at [facility]. She had a past history of depression when she was younger hearing Plan 1. Continue with Zyprexa 10 mg p.o. b.i.d.. 2. Continue [address] scan without contrast head on September 24. It showed microvascular disease but no focal lesion. 4. Start haloperidol 1 mg p.o. q.h.s. on September 25. Reason for continued inpatient stay Substantial Risk for: inability to function, rapid decompensation and med/psych decompensation Time Spent With Patient Time: Total time managing care of this patient today __20__ minutes.
[2023-09-26 20:00] VITALS: BP 121/60; PULSE 98; RESP 16; TEMP 36.7
[2023-09-26] MEDS: traZODone HCL 50 MG TABLET PO (21:16)
[2023-09-26] MEDS: HaloperidoL 1 MG TABLET PO (21:17)
[2023-09-26] MEDS: Atorvastatin Calcium 10 MG TABLET PO (21:17)
[2023-09-27 08:00] VITALS: BP 125/67; PULSE 82; RESP 17; TEMP 36.1; O2SAT 95
[2023-09-27] MEDS: OLANZapine 10 MG TABLET PO ×2 (08:07→20:11)
[2023-09-27] MEDS: DULoxetine HCl 60 MG CAPSULE.DR PO (08:07)
[2023-09-27] MEDS: Ascorbic Acid 500 MG TABLET 1000 MG PO (08:07)
--- NOTE | 2023-09-27 10:54 | HO.PSYCHPN ---
Subjective Subjective Date of Service: 09/27/23 Reason For Visit: Psychosis Subjective Notes: Conditional Voluntary Interim History: The nursing staff reported the patient had been relaxed can pleasant but withdrawn. She denies auditory hallucinations but last night he started hearing about people. She slept 8 hours. The director of social media marketing called her elder care team and we will have a meeting tomorrow at 11:30 by soon. The occupational therapist noticed that the patient has word-finding. On interview the patient denies new symptoms she is pleasantly confused, easily redirectable no evidence of EPS with the addition of Haldol. Mental Status Exam Mental Status Exam Patient Appearance: Appropriate Patient Orientation: Person and Situation Level of Consciousness: Awake and Appropriate Patient Behavior: Guarded and Passive Mood Description: Withdrawn Affect Description: Constricted Patient Cognition Impaired: Yes Ability to Follow Directions: Good Speech Pattern: Clear Hallucinations: Auditory Delusions: Ideas of Reference Thought Process: Distracted and Slowed Thinking Thought Content: positive for [place] and positive for Thought Blocking Judgement: Fair Diagnostics Vital Signs (24Hr): Vital Signs - 24 hr 09/26/23 20:00 09/27/23 08:00 Temperature 98.1 F 97 F Pulse Rate 98 82 Respiratory Rate 16 17 Blood Pressure 121/60 125/67 Pulse Oximetry 95 Oxygen Delivery Method Room Air Room Air BMI result Body Mass Index 24.2 Labs 09/21/23 13:20 09/22/23 07:56 Imaging Radiology Impressions: ITS Impressions Head CT 09/25/23 11:25 IMPRESSION: 1. Mild to moderate global cerebral volume loss with asymmetric prominence of the left hemispheric sulci which may reflect a slight predilection for the left cerebral hemisphere. Mild chronic microangiopathic changes. 2. Asymmetrically prominent lateral right cerebellar folia may reflect an arachnoid cyst. 3. Some aerosolized secretions in the right sphenoid sinus and posterior right ethmoid air cell can be correlated clinically for acute sinusitis. Medications Medications Current Medications Acetaminophen (Acetaminophen 325 Mg Tablet) 650 mg PO Q6H PRN PRN Reason: Headache/Pain Mild Scale (1-3) Last Admin: 09/23/23 06:31 Dose: 650 mg Al Hydroxide/Mg Hydroxide (Magnesium Hydrox/Alum Hydrox 30 Ml Oral.Susp) 30 ml PO Q6H PRN PRN Reason: Heartburn/Nausea Ascorbic Acid (Ascorbic Acid 500 Mg Tablet) 1,000 mg PO DAILY [facility] Last Admin: 09/27/23 08:07 Dose: 1,000 mg Atorvastatin Calcium (Atorvastatin Calcium 10 Mg Tablet) 10 mg PO BEDTIME [facility] Last Admin: 09/26/23 21:17 Dose: 10 mg Duloxetine HCl (Duloxetine Hcl 60 Mg Capsule.Dr) 60 mg PO DAILY [facility] Last Admin: 09/27/23 08:07 Dose: 60 mg Haloperidol (Haloperidol 1 Mg Tablet) 1 mg PO BEDTIME [facility] Last Admin: 09/26/23 21:17 Dose: 1 mg Hydroxyzine HCl (Hydroxyzine Hcl 25 Mg Tablet) 25 mg PO Q6H PRN PRN Reason: Anxiety Magnesium Hydroxide (Milk Of Magnesia 30 Ml Oral.Susp) 30 ml PO DAILY PRN PRN Reason: Constipation Non-Formulary Medication (Secukinumab [Cosentyx Pen (2 Pens)]) 150 mg SUBCUT Q28D [facility] Olanzapine (Olanzapine 10 Mg Tablet) 10 mg PO BID [facility] Last Admin: 09/27/23 08:07 Dose: 10 mg Trazodone HCl (Trazodone Hcl 50 Mg Tablet) 50 mg PO BEDTIME MRX1 PRN PRN Reason: Insomnia Last Admin: 09/26/23 21:16 Dose: 50 mg Allergies Allergies Allergy/AdvReac Type Severity Reaction Status Date / Time No Known Allergies Allergy Verified 09/21/23 13:00 Assessment & Plan Assessment & Plan (1) Psychosis: Status: Acute Code(s): F29 - Unspecified psychosis not due to a substance or known physiological condition Plan The patient is an elderly female with a past history of auditory hallucinations for the last 7 or 8 years with a prior admission into the hospital at [facility]. She had a past history of depression when she was younger hearing Plan 1. Continue with Zyprexa 10 mg p.o. b.i.d.. 2. Continue [address] scan without contrast head on September 24. It showed microvascular disease but no focal lesion. 4. Start haloperidol 1 mg p.o. q.h.s. on September 25. Reason for continued inpatient stay Substantial Risk for: inability to function, rapid decompensation and med/psych decompensation Time Spent With Patient Time: Total time managing care of this patient today __20__ minutes.
[2023-09-27 20:00] VITALS: BP 123/59; PULSE 81; RESP 16; TEMP 36.4; O2SAT 94
[2023-09-27] MEDS: traZODone HCL 50 MG TABLET PO (20:12)
[2023-09-27] MEDS: HaloperidoL 1 MG TABLET PO (20:12)
[2023-09-27] MEDS: Atorvastatin Calcium 10 MG TABLET PO (20:12)
[2023-09-28 09:06] VITALS: BMI 25.4
[2023-09-28 09:52] VITALS: BP 109/57; PULSE 107; RESP 16; TEMP 35.5; O2SAT 95
[2023-09-28] MEDS: OLANZapine 10 MG TABLET PO ×2 (09:56→21:01)
[2023-09-28] MEDS: DULoxetine HCl 60 MG CAPSULE.DR PO (09:56)
[2023-09-28] MEDS: Ascorbic Acid 500 MG TABLET 1000 MG PO (09:56)
--- NOTE | 2023-09-28 16:11 | P.PNPSI_ITS ---
Subjective Subjective Date of Service: 09/28/23 Reason For Visit: Psychosis Subjective Notes: Conditional Voluntary Interim History: The nursing staff reported the patient had been pleasant cooperative she denies auditory or visual hallucinations last night. The occupational therapist reported that she is very impaired, her [place] 16/30 and his and her Sean test history 0.4. Today we had a family meeting at 11:30 with her daughter and we discussed options for discharge planning. Apparently the patient had been hearing voices all this time but she has not disclosing it. On interview we discussed with the patient treatment options and she agreed on increasing Haldol to 2 mg p.o. q.h.s. Mental Status Exam Mental Status Exam Patient Appearance: Appropriate Patient Orientation: Person and Situation Level of Consciousness: Awake Patient Behavior: Guarded and Passive Mood Description: Withdrawn Affect Description: Constricted Patient Cognition Impaired: Yes Ability to Follow Directions: Fair Speech Pattern: Clear Hallucinations: Auditory Delusions: Paranoid Ideation and Ideas of Reference Thought Process: Distracted and Slowed Thinking Thought Content: positive for [place] and positive for Poverty of Content Judgement: Poor Diagnostics Vital Signs (24Hr): Vital Signs - 24 hr 09/27/23 20:00 09/28/23 09:52 Temperature 97.6 F 96 F L Pulse Rate 81 107 H Respiratory Rate 16 16 Blood Pressure 123/59 L 109/57 L Pulse Oximetry 94 95 Oxygen Delivery Method Room Air Room Air BMI result Body Mass Index 25.4 Labs 09/21/23 13:20 09/22/23 07:56 Imaging Radiology Impressions: ITS Impressions Head CT 09/25/23 11:25 IMPRESSION: 1. Mild to moderate global cerebral volume loss with asymmetric prominence of the left hemispheric sulci which may reflect a slight predilection for the left cerebral hemisphere. Mild chronic microangiopathic changes. 2. Asymmetrically prominent lateral right cerebellar folia may reflect an arachnoid cyst. 3. Some aerosolized secretions in the right sphenoid sinus and posterior right ethmoid air cell can be correlated clinically for acute sinusitis. Medications Medications Current Medications Acetaminophen (Acetaminophen 325 Mg Tablet) 650 mg PO Q6H PRN PRN Reason: Headache/Pain Mild Scale (1-3) Last Admin: 09/23/23 06:31 Dose: 650 mg Al Hydroxide/Mg Hydroxide (Magnesium Hydrox/Alum Hydrox 30 Ml Oral.Susp) 30 ml PO Q6H PRN PRN Reason: Heartburn/Nausea Ascorbic Acid (Ascorbic Acid 500 Mg Tablet) 1,000 mg PO DAILY [facility] Last Admin: 09/28/23 09:56 Dose: 1,000 mg Atorvastatin Calcium (Atorvastatin Calcium 10 Mg Tablet) 10 mg PO BEDTIME [facility] Last Admin: 09/27/23 20:12 Dose: 10 mg Duloxetine HCl (Duloxetine Hcl 60 Mg Capsule.Dr) 60 mg PO DAILY [facility] Last Admin: 09/28/23 09:56 Dose: 60 mg Haloperidol (Haloperidol 1 Mg Tablet) 1 mg PO BEDTIME [facility] Last Admin: 09/27/23 20:12 Dose: 1 mg Hydroxyzine HCl (Hydroxyzine Hcl 25 Mg Tablet) 25 mg PO Q6H PRN PRN Reason: Anxiety Magnesium Hydroxide (Milk Of Magnesia 30 Ml Oral.Susp) 30 ml PO DAILY PRN PRN Reason: Constipation Non-Formulary Medication (Secukinumab [Cosentyx Pen (2 Pens)]) 150 mg SUBCUT Q28D [facility] Olanzapine (Olanzapine 10 Mg Tablet) 10 mg PO BID [facility] Last Admin: 09/28/23 09:56 Dose: 10 mg Trazodone HCl (Trazodone Hcl 50 Mg Tablet) 50 mg PO BEDTIME MRX1 PRN PRN Reason: Insomnia Last Admin: 09/27/23 20:12 Dose: 50 mg Allergies Allergies Allergy/AdvReac Type Severity Reaction Status Date / Time No Known Allergies Allergy Verified 09/21/23 13:00 Assessment & Plan Assessment & Plan (1) Psychosis: Status: Acute Code(s): F29 - Unspecified psychosis not due to a substance or known physiological condition Plan The patient is an elderly female with a past history of auditory hallucinations for the last 7 or 8 years with a prior admission into the hospital at [facility]. She had a past history of depression when she was younger hearing Plan 1. Continue with Zyprexa 10 mg p.o. b.i.d.. 2. Continue [address] scan without contrast head on September 24. It showed microvascular disease but no focal lesion. 4. Start haloperidol 1 mg p.o. q.h.s. on September 25. We are increasing up to 2 mg p.o. q.h.s. on September 27. Reason for continued inpatient stay Substantial Risk for: inability to function, rapid decompensation and med/psych decompensation Time Spent With Patient Time: Total time managing care of this patient today __20__ minutes.
[2023-09-28 20:00] VITALS: BP 109/73; PULSE 108; RESP 16; TEMP 36.4; O2SAT 92
[2023-09-28] MEDS: HaloperidoL 1 MG TABLET 2 MG PO (21:00)
[2023-09-28] MEDS: traZODone HCL 50 MG TABLET PO (21:01)
[2023-09-28] MEDS: Atorvastatin Calcium 10 MG TABLET PO (21:01)
[2023-09-29 08:00] VITALS: BP 116/60; PULSE 107; RESP 18; TEMP 36.3; O2SAT 94
[2023-09-29] MEDS: Ascorbic Acid 500 MG TABLET 1000 MG PO (09:52)
[2023-09-29] MEDS: DULoxetine HCl 60 MG CAPSULE.DR PO (09:52)
[2023-09-29] MEDS: OLANZapine 10 MG TABLET PO ×2 (09:52→21:07)
--- NOTE | 2023-09-29 15:31 | P.PNPSI_ITS ---
Subjective Subjective Date of Service: 09/29/23 Reason For Visit: Psychosis Subjective Notes: Conditional Voluntary Interim History: The nursing staff reported the patient had been pleasant, cooperative fully compliant with treatment. Yesterday we had a family meeting with the daughter over who will meet and apparently she had been having psychotic symptoms for several years. On interview the patient reports that she is feeling better less auditory hallucinations with increase of Haldol 2 mg p.o. q.h.s. no evidence of side- effects. We will monitor. Mental Status Exam Mental Status Exam Patient Appearance: Appropriate Patient Orientation: Person and Situation Level of Consciousness: Awake and Appropriate Patient Behavior: Guarded and Passive Mood Description: Calm Affect Description: Constricted Patient Cognition Impaired: Yes Ability to Follow Directions: Good Speech Pattern: Clear Hallucinations: Auditory Delusions: Ideas of Reference Thought Process: Distracted and Slowed Thinking Thought Content: positive for [place] and positive for Poverty of Content Judgement: Fair Diagnostics Vital Signs (24Hr): Vital Signs - 24 hr 09/28/23 20:00 09/29/23 08:00 Temperature 97.6 F 97.4 F Pulse Rate 108 H 107 H Respiratory Rate 16 18 Blood Pressure 109/73 116/60 Pulse Oximetry 92 94 Oxygen Delivery Method Room Air Room Air BMI result Body Mass Index 25.4 Labs 09/21/23 13:20 09/22/23 07:56 Imaging Radiology Impressions: ITS Impressions Head CT 09/25/23 11:25 IMPRESSION: 1. Mild to moderate global cerebral volume loss with asymmetric prominence of the left hemispheric sulci which may reflect a slight predilection for the left cerebral hemisphere. Mild chronic microangiopathic changes. 2. Asymmetrically prominent lateral right cerebellar folia may reflect an arachnoid cyst. 3. Some aerosolized secretions in the right sphenoid sinus and posterior right ethmoid air cell can be correlated clinically for acute sinusitis. Medications Medications Current Medications Acetaminophen (Acetaminophen 325 Mg Tablet) 650 mg PO Q6H PRN PRN Reason: Headache/Pain Mild Scale (1-3) Last Admin: 09/23/23 06:31 Dose: 650 mg Al Hydroxide/Mg Hydroxide (Magnesium Hydrox/Alum Hydrox 30 Ml Oral.Susp) 30 ml PO Q6H PRN PRN Reason: Heartburn/Nausea Ascorbic Acid (Ascorbic Acid 500 Mg Tablet) 1,000 mg PO DAILY [facility] Last Admin: 09/29/23 09:52 Dose: 1,000 mg Atorvastatin Calcium (Atorvastatin Calcium 10 Mg Tablet) 10 mg PO BEDTIME [facility] Last Admin: 09/28/23 21:01 Dose: 10 mg Duloxetine HCl (Duloxetine Hcl 60 Mg Capsule.Dr) 60 mg PO DAILY [facility] Last Admin: 09/29/23 09:52 Dose: 60 mg Haloperidol (Haloperidol 1 Mg Tablet) 2 mg PO BEDTIME [facility] Last Admin: 09/28/23 21:00 Dose: 2 mg Hydroxyzine HCl (Hydroxyzine Hcl 25 Mg Tablet) 25 mg PO Q6H PRN PRN Reason: Anxiety Magnesium Hydroxide (Milk Of Magnesia 30 Ml Oral.Susp) 30 ml PO DAILY PRN PRN Reason: Constipation Non-Formulary Medication (Secukinumab [Cosentyx Pen (2 Pens)]) 150 mg SUBCUT Q28D [facility] Olanzapine (Olanzapine 10 Mg Tablet) 10 mg PO BID [facility] Last Admin: 09/29/23 09:52 Dose: 10 mg Trazodone HCl (Trazodone Hcl 50 Mg Tablet) 50 mg PO BEDTIME MRX1 PRN PRN Reason: Insomnia Last Admin: 09/28/23 21:01 Dose: 50 mg Allergies Allergies Allergy/AdvReac Type Severity Reaction Status Date / Time No Known Allergies Allergy Verified 09/21/23 13:00 Assessment & Plan Assessment & Plan (1) Psychosis: Status: Acute Code(s): F29 - Unspecified psychosis not due to a substance or known physiological condition Plan The patient is an elderly female with a past history of auditory hallucinations for the last 7 or 8 years with a prior admission into the hospital at [facility]. She had a past history of depression when she was younger hearing Plan 1. Continue with Zyprexa 10 mg p.o. b.i.d.. 2. Continue [address] scan without contrast head on September 24. It showed microvascular disease but no focal lesion. 4. Start haloperidol 1 mg p.o. q.h.s. on September 25. We are increasing up to 2 mg p.o. q.h.s. on September 27. Reason for continued inpatient stay Substantial Risk for: inability to function, rapid decompensation and med/psych decompensation Time Spent With Patient Time: Total time managing care of this patient today __20__ minutes.
[2023-09-29 20:00] VITALS: BP 108/55; PULSE 96; RESP 17; TEMP 36.6; O2SAT 93
[2023-09-29] MEDS: traZODone HCL 50 MG TABLET PO (21:07)
[2023-09-29] MEDS: Atorvastatin Calcium 10 MG TABLET PO (21:07)
[2023-09-29] MEDS: HaloperidoL 1 MG TABLET 2 MG PO (21:07)
[2023-09-30 08:00] VITALS: BP 107/61; PULSE 103; RESP 18; TEMP 36.2; O2SAT 94
[2023-09-30] MEDS: DULoxetine HCl 60 MG CAPSULE.DR PO (08:49)
[2023-09-30] MEDS: OLANZapine 10 MG TABLET PO ×2 (08:49→20:20)
[2023-09-30] MEDS: Ascorbic Acid 500 MG TABLET 1000 MG PO (08:49)
--- NOTE | 2023-09-30 08:53 | HO.PSYCHPN ---
Subjective Subjective Date of Service: 09/30/23 Reason For Visit: Psychosis Subjective Notes: Conditional Voluntary Interim History: The nursing staff reported that she is having less auditory hallucinations. She looks like more relaxed, she is more visible in the unit. She had been fully compliant with medications common cooperative. On interview the patient reports less auditory hallucinations but still with sporadic AH,no evidence of EPS. Mental Status Exam Mental Status Exam Patient Appearance: Well Grooomed and Appropriate Patient Orientation: Person and Situation Level of Consciousness: Awake and Appropriate Patient Behavior: Guarded and Passive Mood Description: Withdrawn Affect Description: Constricted Patient Cognition Impaired: Yes Ability to Follow Directions: Good Speech Pattern: Clear Hallucinations: Auditory Delusions: Paranoid Ideation and Ideas of Reference Thought Process: Distracted and Slowed Thinking Thought Content: positive for [place] and positive for Poverty of Content Judgement: Poor Diagnostics Vital Signs (24Hr): Vital Signs - 24 hr 09/29/23 20:00 Temperature 97.8 F Pulse Rate 96 Respiratory Rate 17 Blood Pressure 108/55 L Pulse Oximetry 93 Oxygen Delivery Method Room Air BMI result Body Mass Index 25.4 Labs 09/21/23 13:20 09/22/23 07:56 Imaging Radiology Impressions: ITS Impressions Head CT 09/25/23 11:25 IMPRESSION: 1. Mild to moderate global cerebral volume loss with asymmetric prominence of the left hemispheric sulci which may reflect a slight predilection for the left cerebral hemisphere. Mild chronic microangiopathic changes. 2. Asymmetrically prominent lateral right cerebellar folia may reflect an arachnoid cyst. 3. Some aerosolized secretions in the right sphenoid sinus and posterior right ethmoid air cell can be correlated clinically for acute sinusitis. Medications Medications Current Medications Acetaminophen (Acetaminophen 325 Mg Tablet) 650 mg PO Q6H PRN PRN Reason: Headache/Pain Mild Scale (1-3) Last Admin: 09/23/23 06:31 Dose: 650 mg Al Hydroxide/Mg Hydroxide (Magnesium Hydrox/Alum Hydrox 30 Ml Oral.Susp) 30 ml PO Q6H PRN PRN Reason: Heartburn/Nausea Ascorbic Acid (Ascorbic Acid 500 Mg Tablet) 1,000 mg PO DAILY [facility] Last Admin: 09/30/23 08:49 Dose: 1,000 mg Atorvastatin Calcium (Atorvastatin Calcium 10 Mg Tablet) 10 mg PO BEDTIME [facility] Last Admin: 09/29/23 21:07 Dose: 10 mg Duloxetine HCl (Duloxetine Hcl 60 Mg Capsule.) 60 mg PO DAILY [facility] Last Admin: 09/30/23 08:49 Dose: 60 mg Haloperidol (Haloperidol 1 Mg Tablet) 2 mg PO BEDTIME [facility] Last Admin: 09/29/23 21:07 Dose: 2 mg Hydroxyzine HCl (Hydroxyzine Hcl 25 Mg Tablet) 25 mg PO Q6H PRN PRN Reason: Anxiety Magnesium Hydroxide (Milk Of Magnesia 30 Ml Oral.Susp) 30 ml PO DAILY PRN PRN Reason: Constipation Non-Formulary Medication (Secukinumab [Cosentyx Pen (2 Pens)]) 150 mg SUBCUT Q28D [facility] Olanzapine (Olanzapine 10 Mg Tablet) 10 mg PO BID [facility] Last Admin: 09/30/23 08:49 Dose: 10 mg Trazodone HCl (Trazodone Hcl 50 Mg Tablet) 50 mg PO BEDTIME MRX1 PRN PRN Reason: Insomnia Last Admin: 09/29/23 21:07 Dose: 50 mg Allergies Allergies Allergy/AdvReac Type Severity Reaction Status Date / Time No Known Allergies Allergy Verified 09/21/23 13:00 Assessment & Plan Assessment & Plan (1) Psychosis: Status: Acute Code(s): F29 - Unspecified psychosis not due to a substance or known physiological condition Plan The patient is an elderly female with a past history of auditory hallucinations for the last 7 or 8 years with a prior admission into the hospital at [facility]. She had a past history of depression when she was younger hearing Plan 1. Continue with Zyprexa 10 mg p.o. b.i.d.. 2. Continue [address] scan without contrast head on September 24. It showed microvascular disease but no focal lesion. 4. Start haloperidol 1 mg p.o. q.h.s. on September 25. We are increasing up to 2 mg p.o. q.h.s. on September 27. On September 29, Haldol was increased up to 1 mg po am 2 hs. Reason for continued inpatient stay Substantial Risk for: inability to function, rapid decompensation and med/psych decompensation Time Spent With Patient Time: Total time managing care of this patient today __20__ minutes.
[2023-09-30 20:00] VITALS: BP 118/59; PULSE 111; RESP 16; TEMP 36.7; O2SAT 94
[2023-09-30] MEDS: traZODone HCL 50 MG TABLET PO (20:19)
[2023-09-30] MEDS: Atorvastatin Calcium 10 MG TABLET PO (20:19)
[2023-09-30] MEDS: HaloperidoL 1 MG TABLET 2 MG PO (20:19)
[2023-10-01 07:36] VITALS: BP 119/68; PULSE 71; RESP 18; TEMP 36.1; O2SAT 96
--- NOTE | 2023-10-01 08:33 | HO.PSYCHPN ---
Subjective Subjective Date of Service: 10/01/23 Reason For Visit: Psychosis Subjective Notes: Conditional Voluntary Interim History: The nursing staff reported the patient slept well last night, she had been cooperative and pleasant. On interview the patient reports less auditory hallucinations but still sporadically responding to internal stimuli. We increase Haldol up to 3 mg a day yesterday. We will wait. Mental Status Exam Mental Status Exam Patient Appearance: Appropriate Patient Orientation: Person and Situation Level of Consciousness: Awake and Appropriate Patient Behavior: Guarded and Passive Mood Description: Calm Affect Description: Constricted Patient Cognition Impaired: Yes Ability to Follow Directions: Good Speech Pattern: Clear Hallucinations: Auditory Delusions: Ideas of Reference Thought Process: Distracted and Slowed Thinking Thought Content: positive for [place] and positive for Poverty of Content Judgement: Fair Diagnostics Vital Signs (24Hr): Vital Signs - 24 hr 09/30/23 20:00 10/01/23 07:36 Temperature 98.1 F 97.0 F Pulse Rate 111 H 71 Respiratory Rate 16 18 Blood Pressure 118/59 L 119/68 Pulse Oximetry 94 96 Oxygen Delivery Method Room Air Room Air BMI result Body Mass Index 25.4 Labs 09/21/23 13:20 09/22/23 07:56 Imaging Radiology Impressions: ITS Impressions Head CT 09/25/23 11:25 IMPRESSION: 1. Mild to moderate global cerebral volume loss with asymmetric prominence of the left hemispheric sulci which may reflect a slight predilection for the left cerebral hemisphere. Mild chronic microangiopathic changes. 2. Asymmetrically prominent lateral right cerebellar folia may reflect an arachnoid cyst. 3. Some aerosolized secretions in the right sphenoid sinus and posterior right ethmoid air cell can be correlated clinically for acute sinusitis. Medications Medications Current Medications Acetaminophen (Acetaminophen 325 Mg Tablet) 650 mg PO Q6H PRN PRN Reason: Headache/Pain Mild Scale (1-3) Last Admin: 09/23/23 06:31 Dose: 650 mg Al Hydroxide/Mg Hydroxide (Magnesium Hydrox/Alum Hydrox 30 Ml Oral.Susp) 30 ml PO Q6H PRN PRN Reason: Heartburn/Nausea Ascorbic Acid (Ascorbic Acid 500 Mg Tablet) 1,000 mg PO DAILY [facility] Last Admin: 09/30/23 08:49 Dose: 1,000 mg Atorvastatin Calcium (Atorvastatin Calcium 10 Mg Tablet) 10 mg PO BEDTIME [facility] Last Admin: 09/30/23 20:19 Dose: 10 mg Duloxetine HCl (Duloxetine Hcl 60 Mg Capsule.Dr) 60 mg PO DAILY [facility] Last Admin: 09/30/23 08:49 Dose: 60 mg Haloperidol (Haloperidol 1 Mg Tablet) 2 mg PO BEDTIME [facility] Last Admin: 09/30/23 20:19 Dose: 2 mg Haloperidol (Haloperidol 1 Mg Tablet) 1 mg PO DAILY [facility] Hydroxyzine HCl (Hydroxyzine Hcl 25 Mg Tablet) 25 mg PO Q6H PRN PRN Reason: Anxiety Magnesium Hydroxide (Milk Of Magnesia 30 Ml Oral.Susp) 30 ml PO DAILY PRN PRN Reason: Constipation Non-Formulary Medication (Secukinumab [Cosentyx Pen (2 Pens)]) 150 mg SUBCUT Q28D [facility] Olanzapine (Olanzapine 10 Mg Tablet) 10 mg PO BID [facility] Last Admin: 09/30/23 20:20 Dose: 10 mg Trazodone HCl (Trazodone Hcl 50 Mg Tablet) 50 mg PO BEDTIME MRX1 PRN PRN Reason: Insomnia Last Admin: 09/30/23 20:19 Dose: 50 mg Allergies Allergies Allergy/AdvReac Type Severity Reaction Status Date / Time No Known Allergies Allergy Verified 09/21/23 13:00 Assessment & Plan Assessment & Plan (1) Psychosis: Status: Acute Code(s): F29 - Unspecified psychosis not due to a substance or known physiological condition Plan The patient is an elderly female with a past history of auditory hallucinations for the last 7 or 8 years with a prior admission into the hospital at [facility]. She had a past history of depression when she was younger hearing Plan 1. Continue with Zyprexa 10 mg p.o. b.i.d.. 2. Continue [address] scan without contrast head on September 24. It showed microvascular disease but no focal lesion. 4. Start haloperidol 1 mg p.o. q.h.s. on September 25. We are increasing up to 2 mg p.o. q.h.s. on September 27. On September 29, Haldol was increased up to 1 mg po am 2 hs. Reason for continued inpatient stay Substantial Risk for: inability to function, rapid decompensation and med/psych decompensation Time Spent With Patient Time: Total time managing care of this patient today __20__ minutes.
[2023-10-01] MEDS: OLANZapine 10 MG TABLET PO ×2 (09:44→20:39)
[2023-10-01] MEDS: HaloperidoL 1 MG TABLET PO (09:44)
[2023-10-01] MEDS: Ascorbic Acid 500 MG TABLET 1000 MG PO (09:44)
[2023-10-01] MEDS: DULoxetine HCl 60 MG CAPSULE.DR PO (09:44)
[2023-10-01 20:00] VITALS: BP 100/57; PULSE 106; RESP 18; TEMP 36.1; O2SAT 92
[2023-10-01] MEDS: HaloperidoL 1 MG TABLET 2 MG PO (20:38)
[2023-10-01] MEDS: Atorvastatin Calcium 10 MG TABLET PO (20:38)
[2023-10-01] MEDS: traZODone HCL 50 MG TABLET PO (20:39)
[2023-10-02 08:00] VITALS: BP 118/67; PULSE 110; RESP 18; TEMP 36.1; O2SAT 96
[2023-10-02] MEDS: Ascorbic Acid 500 MG TABLET 1000 MG PO (08:54)
[2023-10-02] MEDS: DULoxetine HCl 60 MG CAPSULE.DR PO (08:54)
[2023-10-02] MEDS: HaloperidoL 1 MG TABLET PO (08:56)
[2023-10-02] MEDS: OLANZapine 10 MG TABLET PO ×2 (08:56→19:40)
--- NOTE | 2023-10-02 13:33 | P.PNPSI_ITS ---
Subjective Subjective Date of Service: 10/02/23 Reason For Visit: Psychosis Subjective Notes: Conditional Voluntary Interim History: The nursing staff reported the patient has flat affect, she had been visible in the unit. The clinical social worker reported that will call found for more services. On interview the patient reports improvement of the auditory hallucinations. Mental Status Exam Mental Status Exam Patient Appearance: Well Grooomed and Appropriate Patient Orientation: Person and Situation Level of Consciousness: Awake and Appropriate Patient Behavior: Guarded and Passive Mood Description: Withdrawn Affect Description: Calm Patient Cognition Impaired: Yes Ability to Follow Directions: Good Speech Pattern: Clear Hallucinations: Auditory Delusions: Ideas of Reference Thought Process: Distracted and Slowed Thinking Thought Content: positive for [place] and positive for Poverty of Content Judgement: Fair Diagnostics Vital Signs (24Hr): Vital Signs - 24 hr 10/01/23 20:00 10/02/23 08:00 Temperature 96.9 F 97 F Pulse Rate 106 H 110 H Respiratory Rate 18 18 Blood Pressure 100/57 L 118/67 Pulse Oximetry 92 96 Oxygen Delivery Method Room Air Room Air BMI result Body Mass Index 25.4 Labs 09/21/23 13:20 09/22/23 07:56 Imaging Radiology Impressions: ITS Impressions Head CT 09/25/23 11:25 IMPRESSION: 1. Mild to moderate global cerebral volume loss with asymmetric prominence of the left hemispheric sulci which may reflect a slight predilection for the left cerebral hemisphere. Mild chronic microangiopathic changes. 2. Asymmetrically prominent lateral right cerebellar folia may reflect an arachnoid cyst. 3. Some aerosolized secretions in the right sphenoid sinus and posterior right ethmoid air cell can be correlated clinically for acute sinusitis. Medications Medications Current Medications Acetaminophen (Acetaminophen 325 Mg Tablet) 650 mg PO Q6H PRN PRN Reason: Headache/Pain Mild Scale (1-3) Last Admin: 09/23/23 06:31 Dose: 650 mg Al Hydroxide/Mg Hydroxide (Magnesium Hydrox/Alum Hydrox 30 Ml Oral.Susp) 30 ml PO Q6H PRN PRN Reason: Heartburn/Nausea Ascorbic Acid (Ascorbic Acid 500 Mg Tablet) 1,000 mg PO DAILY [facility] Last Admin: 10/02/23 08:54 Dose: 1,000 mg Atorvastatin Calcium (Atorvastatin Calcium 10 Mg Tablet) 10 mg PO BEDTIME [facility] Last Admin: 10/01/23 20:38 Dose: 10 mg Duloxetine HCl (Duloxetine Hcl 60 Mg Capsule.) 60 mg PO DAILY [facility] Last Admin: 10/02/23 08:54 Dose: 60 mg Haloperidol (Haloperidol 1 Mg Tablet) 2 mg PO BEDTIME [facility] Last Admin: 10/01/23 20:38 Dose: 2 mg Haloperidol (Haloperidol 1 Mg Tablet) 1 mg PO DAILY [facility] Last Admin: 10/02/23 08:56 Dose: 1 mg Hydroxyzine HCl (Hydroxyzine Hcl 25 Mg Tablet) 25 mg PO Q6H PRN PRN Reason: Anxiety Magnesium Hydroxide (Milk Of Magnesia 30 Ml Oral.Susp) 30 ml PO DAILY PRN PRN Reason: Constipation Non-Formulary Medication (Secukinumab [Cosentyx Pen (2 Pens)]) 150 mg SUBCUT Q28D [facility] Olanzapine (Olanzapine 10 Mg Tablet) 10 mg PO BID [facility] Last Admin: 10/02/23 08:56 Dose: 10 mg Trazodone HCl (Trazodone Hcl 50 Mg Tablet) 50 mg PO BEDTIME MRX1 PRN PRN Reason: Insomnia Last Admin: 10/01/23 20:39 Dose: 50 mg Allergies Allergies Allergy/AdvReac Type Severity Reaction Status Date / Time No Known Allergies Allergy Verified 09/21/23 13:00 Assessment & Plan Assessment & Plan (1) Psychosis: Status: Acute Code(s): F29 - Unspecified psychosis not due to a substance or known physiological condition Plan The patient is an elderly female with a past history of auditory hallucinations for the last 7 or 8 years with a prior admission into the hospital at [facility]. She had a past history of depression when she was younger hearing Plan 1. Continue with Zyprexa 10 mg p.o. b.i.d.. 2. Continue [address] scan without contrast head on September 24. It showed microvascular disease but no focal lesion. 4. Start haloperidol 1 mg p.o. q.h.s. on September 25. We are increasing up to 2 mg p.o. q.h.s. on September 27. On September 29, Haldol was increased up to 1 mg po am 2 hs. Reason for continued inpatient stay Substantial Risk for: inability to function, rapid decompensation and med/psych decompensation Time Spent With Patient Time: Total time managing care of this patient today __20__ minutes.
[2023-10-02] MEDS: traZODone HCL 50 MG TABLET PO (19:40)
[2023-10-02] MEDS: HaloperidoL 1 MG TABLET 2 MG PO (19:40)
[2023-10-02] MEDS: Atorvastatin Calcium 10 MG TABLET PO (19:41)
[2023-10-02 20:00] VITALS: BP 93/62; PULSE 111; RESP 16; TEMP 36.1; O2SAT 94
[2023-10-03 08:00] VITALS: BP 121/65; PULSE 79; RESP 16; TEMP 36.3; O2SAT 94
[2023-10-03] MEDS: DULoxetine HCl 60 MG CAPSULE.DR PO (09:42)
[2023-10-03] MEDS: Ascorbic Acid 500 MG TABLET 1000 MG PO (09:42)
[2023-10-03] MEDS: OLANZapine 10 MG TABLET PO ×2 (09:42→20:58)
[2023-10-03] MEDS: HaloperidoL 1 MG TABLET PO (09:42)
--- NOTE | 2023-10-03 13:47 | P.PNPSI_ITS ---
Subjective Subjective Date of Service: 10/03/23 Reason For Visit: Psychosis Subjective Notes: Conditional Voluntary Interim History: The nursing staff reported the patient had been compliant with treatment. She was seen attending to all the groups in the afternoon. On interview the patient denies active auditory hallucinations. She slept well last night. We discussed options and she agreed to keep Zyprexa and Haldol and add some Namenda for dementia. Mental Status Exam Mental Status Exam Patient Appearance: Well Grooomed Patient Orientation: Person and Situation Level of Consciousness: Awake and Appropriate Patient Behavior: Guarded and Passive Mood Description: Withdrawn Affect Description: Constricted Patient Cognition Impaired: Yes Ability to Follow Directions: Good Speech Pattern: Clear Hallucinations: Auditory Delusions: Paranoid Ideation and Ideas of Reference Thought Process: Distracted Thought Content: positive for [place] and positive for Poverty of Content Judgement: Fair Diagnostics Vital Signs (24Hr): Vital Signs - 24 hr 10/02/23 20:00 10/03/23 08:00 Temperature 96.9 F 97.4 F Pulse Rate 111 H 79 Respiratory Rate 16 16 Blood Pressure 93/62 121/65 Pulse Oximetry 94 94 Oxygen Delivery Method Room Air Room Air BMI result Body Mass Index 25.4 Labs 09/21/23 13:20 09/22/23 07:56 Imaging Radiology Impressions: ITS Impressions Head CT 09/25/23 11:25 IMPRESSION: 1. Mild to moderate global cerebral volume loss with asymmetric prominence of the left hemispheric sulci which may reflect a slight predilection for the left cerebral hemisphere. Mild chronic microangiopathic changes. 2. Asymmetrically prominent lateral right cerebellar folia may reflect an arachnoid cyst. 3. Some aerosolized secretions in the right sphenoid sinus and posterior right ethmoid air cell can be correlated clinically for acute sinusitis. Medications Medications Current Medications Acetaminophen (Acetaminophen 325 Mg Tablet) 650 mg PO Q6H PRN PRN Reason: Headache/Pain Mild Scale (1-3) Last Admin: 09/23/23 06:31 Dose: 650 mg Al Hydroxide/Mg Hydroxide (Magnesium Hydrox/Alum Hydrox 30 Ml Oral.Susp) 30 ml PO Q6H PRN PRN Reason: Heartburn/Nausea Ascorbic Acid (Ascorbic Acid 500 Mg Tablet) 1,000 mg PO DAILY [facility] Last Admin: 10/03/23 09:42 Dose: 1,000 mg Atorvastatin Calcium (Atorvastatin Calcium 10 Mg Tablet) 10 mg PO BEDTIME [facility] Last Admin: 10/02/23 19:41 Dose: 10 mg Duloxetine HCl (Duloxetine Hcl 60 Mg Capsule.Dr) 60 mg PO DAILY [facility] Last Admin: 10/03/23 09:42 Dose: 60 mg Haloperidol (Haloperidol 1 Mg Tablet) 2 mg PO BEDTIME [facility] Last Admin: 10/02/23 19:40 Dose: 2 mg Haloperidol (Haloperidol 1 Mg Tablet) 1 mg PO DAILY [facility] Last Admin: 10/03/23 09:42 Dose: 1 mg Hydroxyzine HCl (Hydroxyzine Hcl 25 Mg Tablet) 25 mg PO Q6H PRN PRN Reason: Anxiety Magnesium Hydroxide (Milk Of Magnesia 30 Ml Oral.Susp) 30 ml PO DAILY PRN PRN Reason: Constipation Non-Formulary Medication (Secukinumab [Cosentyx Pen (2 Pens)]) 150 mg SUBCUT Q28D [facility] Olanzapine (Olanzapine 10 Mg Tablet) 10 mg PO BID [facility] Last Admin: 10/03/23 09:42 Dose: 10 mg Trazodone HCl (Trazodone Hcl 50 Mg Tablet) 50 mg PO BEDTIME MRX1 PRN PRN Reason: Insomnia Last Admin: 10/02/23 19:40 Dose: 50 mg Allergies Allergies Allergy/AdvReac Type Severity Reaction Status Date / Time No Known Allergies Allergy Verified 09/21/23 13:00 Assessment & Plan Assessment & Plan (1) Psychosis: Status: Acute Code(s): F29 - Unspecified psychosis not due to a substance or known physiological condition Plan The patient is an elderly female with a past history of auditory hallucinations for the last 7 or 8 years with a prior admission into the hospital at [facility]. She had a past history of depression when she was younger hearing Plan 1. Continue with Zyprexa 10 mg p.o. b.i.d.. 2. Continue [address] scan without contrast head on September 24. It showed microvascular disease but no focal lesion. 4. Start haloperidol 1 mg p.o. q.h.s. on September 25. We are increasing up to 2 mg p.o. q.h.s. on September 27. On September 29, Haldol was increased up to 1 mg po am 2 hs. 5. Start Namenda 5 mg p.o. q.h.s. for dementia. Reason for continued inpatient stay Substantial Risk for: inability to function, rapid decompensation and med/psych decompensation Time Spent With Patient Time: Total time managing care of this patient today __20__ minutes.
[2023-10-03 20:00] VITALS: BP 100/58; PULSE 108; RESP 16; TEMP 36.8; O2SAT 93
[2023-10-03] MEDS: Atorvastatin Calcium 10 MG TABLET PO (20:58)
[2023-10-03] MEDS: Memantine HCl 5 MG TABLET PO (20:58)
[2023-10-03] MEDS: traZODone HCL 50 MG TABLET PO (20:58)
[2023-10-03] MEDS: HaloperidoL 1 MG TABLET 2 MG PO (20:59)
[2023-10-04 07:55] VITALS: BP 133/78; PULSE 81; RESP 17; TEMP 36.1; O2SAT 94
[2023-10-04] MEDS: DULoxetine HCl 60 MG CAPSULE.DR PO (08:08)
[2023-10-04] MEDS: HaloperidoL 1 MG TABLET PO (08:08)
[2023-10-04] MEDS: OLANZapine 10 MG TABLET PO ×2 (08:08→20:38)
[2023-10-04] MEDS: Ascorbic Acid 500 MG TABLET 1000 MG PO (08:08)
--- NOTE | 2023-10-04 14:46 | HO.PSYCHPN ---
Subjective Subjective Date of Service: 10/04/23 Reason For Visit: Psychosis Subjective Notes: Conditional Voluntary Interim History: The nursing staff reported the patient slept 8 hours she had sporadic auditory hallucinations. The social service liaison reported the family is open for an assisted living placement. On interview the patient reported sporadically auditory hallucinations and she agreed on as slight increase of Haldol. She was already started on Namenda. Mental Status Exam Mental Status Exam Patient Appearance: Appropriate Patient Orientation: Person and Situation Level of Consciousness: Awake and Appropriate Patient Behavior: Guarded and Passive Mood Description: Withdrawn Affect Description: Constricted Patient Cognition Impaired: Yes Ability to Follow Directions: Good Speech Pattern: Clear Hallucinations: Auditory Delusions: Paranoid Ideation Thought Process: Distracted and Slowed Thinking Thought Content: positive for [place] and positive for Poverty of Content Judgement: Fair Diagnostics Vital Signs (24Hr): Vital Signs - 24 hr 10/03/23 20:00 10/04/23 07:55 Temperature 98.3 F 96.9 F Pulse Rate 108 H 81 Respiratory Rate 16 17 Blood Pressure 100/58 L 133/78 Pulse Oximetry 93 94 Oxygen Delivery Method Room Air Room Air BMI result Body Mass Index 25.4 Labs 09/21/23 13:20 09/22/23 07:56 Imaging Radiology Impressions: ITS Impressions Head CT 09/25/23 11:25 IMPRESSION: 1. Mild to moderate global cerebral volume loss with asymmetric prominence of the left hemispheric sulci which may reflect a slight predilection for the left cerebral hemisphere. Mild chronic microangiopathic changes. 2. Asymmetrically prominent lateral right cerebellar folia may reflect an arachnoid cyst. 3. Some aerosolized secretions in the right sphenoid sinus and posterior right ethmoid air cell can be correlated clinically for acute sinusitis. Medications Medications Current Medications Acetaminophen (Acetaminophen 325 Mg Tablet) 650 mg PO Q6H PRN PRN Reason: Headache/Pain Mild Scale (1-3) Last Admin: 09/23/23 06:31 Dose: 650 mg Al Hydroxide/Mg Hydroxide (Magnesium Hydrox/Alum Hydrox 30 Ml Oral.Susp) 30 ml PO Q6H PRN PRN Reason: Heartburn/Nausea Ascorbic Acid (Ascorbic Acid 500 Mg Tablet) 1,000 mg PO DAILY [facility] Last Admin: 10/04/23 08:08 Dose: 1,000 mg Atorvastatin Calcium (Atorvastatin Calcium 10 Mg Tablet) 10 mg PO BEDTIME [facility] Last Admin: 10/03/23 20:58 Dose: 10 mg Duloxetine HCl (Duloxetine Hcl 60 Mg Capsule.Dr) 60 mg PO DAILY [facility] Last Admin: 10/04/23 08:08 Dose: 60 mg Haloperidol (Haloperidol 1 Mg Tablet) 2 mg PO BEDTIME [facility] Last Admin: 10/03/23 20:59 Dose: 2 mg Haloperidol (Haloperidol 1 Mg Tablet) 1 mg PO DAILY [facility] Last Admin: 10/04/23 08:08 Dose: 1 mg Hydroxyzine HCl (Hydroxyzine Hcl 25 Mg Tablet) 25 mg PO Q6H PRN PRN Reason: Anxiety Magnesium Hydroxide (Milk Of Magnesia 30 Ml Oral.Susp) 30 ml PO DAILY PRN PRN Reason: Constipation Memantine (Memantine Hcl 5 Mg Tablet) 5 mg PO BEDTIME [facility] Last Admin: 10/03/23 20:58 Dose: 5 mg Non-Formulary Medication (Secukinumab [Cosentyx Pen (2 Pens)]) 150 mg SUBCUT Q28D [facility] Olanzapine (Olanzapine 10 Mg Tablet) 10 mg PO BID [facility] Last Admin: 10/04/23 08:08 Dose: 10 mg Trazodone HCl (Trazodone Hcl 50 Mg Tablet) 50 mg PO BEDTIME MRX1 PRN PRN Reason: Insomnia Last Admin: 10/03/23 20:58 Dose: 50 mg Allergies Allergies Allergy/AdvReac Type Severity Reaction Status Date / Time No Known Allergies Allergy Verified 09/21/23 13:00 Assessment & Plan Assessment & Plan (1) Psychosis: Status: Acute Code(s): F29 - Unspecified psychosis not due to a substance or known physiological condition Plan The patient is an elderly female with a past history of auditory hallucinations for the last 7 or 8 years with a prior admission into the hospital at [facility]. She had a past history of depression when she was younger hearing Plan 1. Continue with Zyprexa 10 mg p.o. b.i.d.. 2. Continue [address] scan without contrast head on September 24. It showed microvascular disease but no focal lesion. 4. Start haloperidol 1 mg p.o. q.h.s. on September 25. We are increasing up to 2 mg p.o. q.h.s. on September 27. On September 29, Haldol was increased up to 1 mg po am 2 hs. On October 03 we increase it Haldol to 1 mg in the morning, 1 mg in the afternoon and 2 mg at bedtime. 5. Start Namenda 5 mg p.o. q.h.s. for dementia. Reason for continued inpatient stay Substantial Risk for: inability to function, rapid decompensation and med/psych decompensation Time Spent With Patient Time: Total time managing care of this patient today __20__ minutes.
[2023-10-04 20:00] VITALS: BP 99/58; PULSE 100; RESP 16; TEMP 36.6; O2SAT 99
[2023-10-04] MEDS: Memantine HCl 5 MG TABLET PO (20:37)
[2023-10-04] MEDS: Atorvastatin Calcium 10 MG TABLET PO (20:37)
[2023-10-04] MEDS: HaloperidoL 1 MG TABLET 2 MG PO (20:37)
[2023-10-04] MEDS: traZODone HCL 50 MG TABLET PO (20:38)
[2023-10-05 07:00] VITALS: BMI 26.1
[2023-10-05 08:00] VITALS: BP 122/61; PULSE 105; RESP 16; TEMP 36.5; O2SAT 95
[2023-10-05] MEDS: DULoxetine HCl 60 MG CAPSULE.DR PO (08:43)
[2023-10-05] MEDS: OLANZapine 10 MG TABLET PO ×2 (08:43→20:23)
[2023-10-05] MEDS: HaloperidoL 1 MG TABLET PO (08:44)
[2023-10-05] MEDS: Ascorbic Acid 500 MG TABLET 1000 MG PO (08:44)
--- NOTE | 2023-10-05 11:26 | P.PNPSI_ITS ---
Subjective Subjective Date of Service: 10/05/23 Reason For Visit: Psychosis Subjective Notes: Conditional Voluntary Interim History: The nursing staff reported the patient had been compliant with treatment, she was calm withdrawn and she slept 8 hours. The social service coordinator reported that they were thinking of an assisted living facility but financially she has not cleared yet. On interview the patient reports sporadic auditory hallucinations but she feels more calm. Mental Status Exam Mental Status Exam Patient Appearance: Appropriate Patient Orientation: Person and Situation Level of Consciousness: Awake and Appropriate Patient Behavior: Guarded and Passive Mood Description: Withdrawn Affect Description: Constricted Patient Cognition Impaired: Yes Ability to Follow Directions: Good Speech Pattern: Clear Hallucinations: None Delusions: Ideas of Reference Thought Process: Distracted and Slowed Thinking Thought Content: positive for [place] and positive for Poverty of Content Judgement: Fair Diagnostics Vital Signs (24Hr): Vital Signs - 24 hr 10/04/23 20:00 10/05/23 08:00 Temperature 97.9 F 97.7 F Pulse Rate 100 105 H Respiratory Rate 16 16 Blood Pressure 99/58 L 122/61 Pulse Oximetry 99 95 Oxygen Delivery Method Room Air Room Air BMI result Body Mass Index 25.4 Labs 09/21/23 13:20 09/22/23 07:56 Imaging Radiology Impressions: ITS Impressions Head CT 09/25/23 11:25 IMPRESSION: 1. Mild to moderate global cerebral volume loss with asymmetric prominence of the left hemispheric sulci which may reflect a slight predilection for the left cerebral hemisphere. Mild chronic microangiopathic changes. 2. Asymmetrically prominent lateral right cerebellar folia may reflect an arachnoid cyst. 3. Some aerosolized secretions in the right sphenoid sinus and posterior right ethmoid air cell can be correlated clinically for acute sinusitis. Medications Medications Current Medications Acetaminophen (Acetaminophen 325 Mg Tablet) 650 mg PO Q6H PRN PRN Reason: Headache/Pain Mild Scale (1-3) Last Admin: 09/23/23 06:31 Dose: 650 mg Al Hydroxide/Mg Hydroxide (Magnesium Hydrox/Alum Hydrox 30 Ml Oral.Susp) 30 ml PO Q6H PRN PRN Reason: Heartburn/Nausea Ascorbic Acid (Ascorbic Acid 500 Mg Tablet) 1,000 mg PO DAILY [facility] Last Admin: 10/05/23 08:44 Dose: 1,000 mg Atorvastatin Calcium (Atorvastatin Calcium 10 Mg Tablet) 10 mg PO BEDTIME [facility] Last Admin: 10/04/23 20:37 Dose: 10 mg Duloxetine HCl (Duloxetine Hcl 60 Mg Capsule.Dr) 60 mg PO DAILY [facility] Last Admin: 10/05/23 08:43 Dose: 60 mg Haloperidol (Haloperidol 1 Mg Tablet) 2 mg PO BEDTIME [facility] Last Admin: 10/04/23 20:37 Dose: 2 mg Haloperidol (Haloperidol 1 Mg Tablet) 1 mg PO BID@0830,1330 [facility] Last Admin: 10/05/23 08:44 Dose: 1 mg Hydroxyzine HCl (Hydroxyzine Hcl 25 Mg Tablet) 25 mg PO Q6H PRN PRN Reason: Anxiety Magnesium Hydroxide (Milk Of Magnesia 30 Ml Oral.Susp) 30 ml PO DAILY PRN PRN Reason: Constipation Memantine (Memantine Hcl 5 Mg Tablet) 5 mg PO BEDTIME [facility] Last Admin: 10/04/23 20:37 Dose: 5 mg Non-Formulary Medication (Secukinumab [Cosentyx Pen (2 Pens)]) 150 mg SUBCUT Q28D [facility] Olanzapine (Olanzapine 10 Mg Tablet) 10 mg PO BID [facility] Last Admin: 10/05/23 08:43 Dose: 10 mg Trazodone HCl (Trazodone Hcl 50 Mg Tablet) 50 mg PO BEDTIME MRX1 PRN PRN Reason: Insomnia Last Admin: 10/04/23 20:38 Dose: 50 mg Allergies Allergies Allergy/AdvReac Type Severity Reaction Status Date / Time No Known Allergies Allergy Verified 09/21/23 13:00 Assessment & Plan Assessment & Plan (1) Psychosis: Status: Acute Code(s): F29 - Unspecified psychosis not due to a substance or known physiological condition Plan The patient is an elderly female with a past history of auditory hallucinations for the last 7 or 8 years with a prior admission into the hospital at [facility]. She had a past history of depression when she was younger hearing Plan 1. Continue with Zyprexa 10 mg p.o. b.i.d.. 2. Continue [address] scan without contrast head on September 24. It showed microvascular disease but no focal lesion. 4. Start haloperidol 1 mg p.o. q.h.s. on September 25. We are increasing up to 2 mg p.o. q.h.s. on September 27. On September 29, Haldol was increased up to 1 mg po am 2 hs. On October 03 we increase it Haldol to 1 mg in the morning, 1 mg in the afternoon and 2 mg at bedtime. 5. Start Namenda 5 mg p.o. q.h.s. for dementia. It was increased to 5 mg p.o. b.i.d. on October 04 Reason for continued inpatient stay Substantial Risk for: inability to function, rapid decompensation and med/psych decompensation Time Spent With Patient Time: Total time managing care of this patient today __20__ minutes.
--- NOTE | 2023-10-05 15:04 | PC.NURSE ---
Patient's 13:30 scheduled haldol was held d/t patient being sound asleep. This nurse has checked in on her multiple within the past hour and a half in an attempt to give the medications with no luck. Provider notified via tiger text.
[2023-10-05 20:00] VITALS: BP 107/53; PULSE 81; RESP 16; TEMP 36.2; O2SAT 94
[2023-10-05] MEDS: Atorvastatin Calcium 10 MG TABLET PO (20:22)
[2023-10-05] MEDS: Memantine HCl 5 MG TABLET PO (20:23)
[2023-10-05] MEDS: HaloperidoL 1 MG TABLET 2 MG PO (20:23)
--- NOTE | 2023-10-06 08:36 | HO.PSYCHPN ---
Subjective Subjective Date of Service: 10/06/23 Reason For Visit: Psychosis Interim History: Pt slept most of the night She is taking medications as prescribed. No SI/HI. She reports less AH. she states they are mostly mumbles at this time. No behavioral concerns. VS stable. Review of Systems Review of Systems Yes all other systems are reviewed and are negative Mental Status Exam Mental Status Exam Patient Appearance: Appropriate Patient Orientation: Person and Situation Level of Consciousness: Awake and Appropriate Patient Behavior: Guarded and Passive Mood Description: Withdrawn Affect Description: Constricted Patient Cognition Impaired: Yes Ability to Follow Directions: Good Speech Pattern: Clear Diagnostics Vital Signs (24Hr): Vital Signs - 24 hr 10/05/23 20:00 Temperature 97.1 F Pulse Rate 81 Respiratory Rate 16 Blood Pressure 107/53 L Pulse Oximetry 94 Oxygen Delivery Method Room Air BMI result Body Mass Index 26.1 Labs 09/21/23 13:20 09/22/23 07:56 Imaging Radiology Impressions: ITS Impressions Head CT 09/25/23 11:25 IMPRESSION: 1. Mild to moderate global cerebral volume loss with asymmetric prominence of the left hemispheric sulci which may reflect a slight predilection for the left cerebral hemisphere. Mild chronic microangiopathic changes. 2. Asymmetrically prominent lateral right cerebellar folia may reflect an arachnoid cyst. 3. Some aerosolized secretions in the right sphenoid sinus and posterior right ethmoid air cell can be correlated clinically for acute sinusitis. Medications Medications Current Medications Acetaminophen (Acetaminophen 325 Mg Tablet) 650 mg PO Q6H PRN PRN Reason: Headache/Pain Mild Scale (1-3) Last Admin: 09/23/23 06:31 Dose: 650 mg Al Hydroxide/Mg Hydroxide (Magnesium Hydrox/Alum Hydrox 30 Ml Oral.Susp) 30 ml PO Q6H PRN PRN Reason: Heartburn/Nausea Ascorbic Acid (Ascorbic Acid 500 Mg Tablet) 1,000 mg PO DAILY [facility] Last Admin: 10/05/23 08:44 Dose: 1,000 mg Atorvastatin Calcium (Atorvastatin Calcium 10 Mg Tablet) 10 mg PO BEDTIME [facility] Last Admin: 10/05/23 20:22 Dose: 10 mg Duloxetine HCl (Duloxetine Hcl 60 Mg Capsule.Dr) 60 mg PO DAILY [facility] Last Admin: 10/05/23 08:43 Dose: 60 mg Haloperidol (Haloperidol 1 Mg Tablet) 2 mg PO BEDTIME [facility] Last Admin: 10/05/23 20:23 Dose: 2 mg Haloperidol (Haloperidol 1 Mg Tablet) 1 mg PO BID@0830,1330 [facility] Last Admin: 10/05/23 14:59 Dose: Not Given Hydroxyzine HCl (Hydroxyzine Hcl 25 Mg Tablet) 25 mg PO Q6H PRN PRN Reason: Anxiety Magnesium Hydroxide (Milk Of Magnesia 30 Ml Oral.Susp) 30 ml PO DAILY PRN PRN Reason: Constipation Memantine (Memantine Hcl 5 Mg Tablet) 5 mg PO BID [facility] Last Admin: 10/05/23 20:23 Dose: 5 mg Non-Formulary Medication (Secukinumab [Cosentyx Pen (2 Pens)]) 150 mg SUBCUT Q28D [facility] Olanzapine (Olanzapine 10 Mg Tablet) 10 mg PO BID [facility] Last Admin: 10/05/23 20:23 Dose: 10 mg Trazodone HCl (Trazodone Hcl 50 Mg Tablet) 50 mg PO BEDTIME MRX1 PRN PRN Reason: Insomnia Last Admin: 10/04/23 20:38 Dose: 50 mg Allergies Allergies Allergy/AdvReac Type Severity Reaction Status Date / Time No Known Allergies Allergy Verified 09/21/23 13:00 Assessment & Plan Assessment & Plan (1) Psychosis: Status: Acute Code(s): F29 - Unspecified psychosis not due to a substance or known physiological condition Plan The patient is an elderly female with a past history of auditory hallucinations for the last 7 or 8 years with a prior admission into the hospital at [facility]. She had a past history of depression when she was younger hearing Plan 1. Continue with Zyprexa 10 mg p.o. b.i.d.. 2. Continue [address] scan without contrast head on September 24. It showed microvascular disease but no focal lesion. 4. Start haloperidol 1 mg p.o. q.h.s. on September 25. We are increasing up to 2 mg p.o. q.h.s. on September 27. On September 29, Haldol was increased up to 1 mg po am 2 hs. On October 03 we increase it Haldol to 1 mg in the morning, 1 mg in the afternoon and 2 mg at bedtime. 5. Start Namenda 5 mg p.o. q.h.s. for dementia. It was increased to 5 mg p.o. b.i.d. on October 04 Reason for continued inpatient stay Substantial Risk for: inability to function Time Spent With Patient Time: Total time managing care of this patient today ____ minutes.
[2023-10-06 08:45] VITALS: BP 128/60; PULSE 104; RESP 16; TEMP 36.3; O2SAT 91
[2023-10-06] MEDS: Ascorbic Acid 500 MG TABLET 1000 MG PO (08:49)
[2023-10-06] MEDS: Memantine HCl 5 MG TABLET PO ×2 (08:49→20:59)
[2023-10-06] MEDS: HaloperidoL 1 MG TABLET PO ×2 (08:49→12:53)
[2023-10-06] MEDS: OLANZapine 10 MG TABLET PO ×2 (08:49→20:59)
[2023-10-06] MEDS: DULoxetine HCl 60 MG CAPSULE.DR PO (08:50)
[2023-10-06 20:00] VITALS: BP 141/64; PULSE 100; RESP 16; TEMP 36.2; O2SAT 92
[2023-10-06] MEDS: HaloperidoL 1 MG TABLET 2 MG PO (20:59)
[2023-10-06] MEDS: Atorvastatin Calcium 10 MG TABLET PO (20:59)
[2023-10-07 08:36] VITALS: BP 124/65; PULSE 102; RESP 16; TEMP 36.2; O2SAT 97
[2023-10-07] MEDS: OLANZapine 10 MG TABLET PO ×2 (09:00→21:05)
[2023-10-07] MEDS: DULoxetine HCl 60 MG CAPSULE.DR PO (09:00)
[2023-10-07] MEDS: HaloperidoL 1 MG TABLET PO ×2 (09:00→14:26)
[2023-10-07] MEDS: Ascorbic Acid 500 MG TABLET 1000 MG PO (09:00)
[2023-10-07] MEDS: Memantine HCl 5 MG TABLET PO ×2 (09:00→21:05)
--- NOTE | 2023-10-07 12:55 | HO.PSYCHPN ---
Subjective Subjective Date of Service: 10/07/23 Reason For Visit: Psychosis Subjective Notes: Conditional Voluntary Interim History: Patient was seen and discussed in rounds today. Records and plans were reviewed. She has been stable, med compliant. Eating and sleeping adequately. Some auditory hallucinations reported and at times command. No behavioral issues or aggression. Eating and sleeping adequately. No changes were made today Review of Systems Review of Systems Yes all other systems are reviewed and are negative Mental Status Exam Mental Status Exam Patient Appearance: Appropriate Patient Orientation: Person and Situation Level of Consciousness: Awake and Appropriate Patient Behavior: Guarded and Passive Mood Description: Withdrawn Affect Description: Constricted Patient Cognition Impaired: Yes Ability to Follow Directions: Good Speech Pattern: Clear Diagnostics Vital Signs (24Hr): Vital Signs - 24 hr 10/06/23 20:00 10/07/23 08:36 Temperature 97.1 F 97.1 F Pulse Rate 100 102 H Respiratory Rate 16 16 Blood Pressure 141/64 H 124/65 Pulse Oximetry 92 97 Oxygen Delivery Method Room Air Room Air BMI result Body Mass Index 26.1 Labs 09/21/23 13:20 09/22/23 07:56 Imaging Radiology Impressions: ITS Impressions Head CT 09/25/23 11:25 IMPRESSION: 1. Mild to moderate global cerebral volume loss with asymmetric prominence of the left hemispheric sulci which may reflect a slight predilection for the left cerebral hemisphere. Mild chronic microangiopathic changes. 2. Asymmetrically prominent lateral right cerebellar folia may reflect an arachnoid cyst. 3. Some aerosolized secretions in the right sphenoid sinus and posterior right ethmoid air cell can be correlated clinically for acute sinusitis. Medications Medications Current Medications Acetaminophen (Acetaminophen 325 Mg Tablet) 650 mg PO Q6H PRN PRN Reason: Headache/Pain Mild Scale (1-3) Last Admin: 09/23/23 06:31 Dose: 650 mg Al Hydroxide/Mg Hydroxide (Magnesium Hydrox/Alum Hydrox 30 Ml Oral.Susp) 30 ml PO Q6H PRN PRN Reason: Heartburn/Nausea Ascorbic Acid (Ascorbic Acid 500 Mg Tablet) 1,000 mg PO DAILY [facility] Last Admin: 10/07/23 09:00 Dose: 1,000 mg Atorvastatin Calcium (Atorvastatin Calcium 10 Mg Tablet) 10 mg PO BEDTIME [facility] Last Admin: 10/06/23 20:59 Dose: 10 mg Duloxetine HCl (Duloxetine Hcl 60 Mg Capsule.Dr) 60 mg PO DAILY [facility] Last Admin: 10/07/23 09:00 Dose: 60 mg Haloperidol (Haloperidol 1 Mg Tablet) 2 mg PO BEDTIME [facility] Last Admin: 10/06/23 20:59 Dose: 2 mg Haloperidol (Haloperidol 1 Mg Tablet) 1 mg PO BID@0830,1330 [facility] Last Admin: 10/07/23 09:00 Dose: 1 mg Hydroxyzine HCl (Hydroxyzine Hcl 25 Mg Tablet) 25 mg PO Q6H PRN PRN Reason: Anxiety Magnesium Hydroxide (Milk Of Magnesia 30 Ml Oral.Susp) 30 ml PO DAILY PRN PRN Reason: Constipation Memantine (Memantine Hcl 5 Mg Tablet) 5 mg PO BID [facility] Last Admin: 10/07/23 09:00 Dose: 5 mg Non-Formulary Medication (Secukinumab [Cosentyx Pen (2 Pens)]) 150 mg SUBCUT Q28D [facility] Olanzapine (Olanzapine 10 Mg Tablet) 10 mg PO BID [facility] Last Admin: 10/07/23 09:00 Dose: 10 mg Trazodone HCl (Trazodone Hcl 50 Mg Tablet) 50 mg PO BEDTIME MRX1 PRN PRN Reason: Insomnia Last Admin: 10/04/23 20:38 Dose: 50 mg Allergies Allergies Allergy/AdvReac Type Severity Reaction Status Date / Time No Known Allergies Allergy Verified 09/21/23 13:00 Assessment & Plan Assessment & Plan (1) Psychosis: Status: Acute Code(s): F29 - Unspecified psychosis not due to a substance or known physiological condition Plan The patient is an elderly female with a past history of auditory hallucinations for the last 7 or 8 years with a prior admission into the hospital at [facility]. She had a past history of depression when she was younger hearing Plan 1. Continue with Zyprexa 10 mg p.o. b.i.d.. 2. Continue [address] scan without contrast head on September 24. It showed microvascular disease but no focal lesion. 4. Start haloperidol 1 mg p.o. q.h.s. on September 25. We are increasing up to 2 mg p.o. q.h.s. on September 27. On September 29, Haldol was increased up to 1 mg po am 2 hs. On October 03 we increase it Haldol to 1 mg in the morning, 1 mg in the afternoon and 2 mg at bedtime. 5. Start Namenda 5 mg p.o. q.h.s. for dementia. It was increased to 5 mg p.o. b.i.d. on October 0410/06: Continue current regimen and planslan Reason for continued inpatient stay Substantial Risk for: med/psych decompensation Time Spent With Patient Time: Total time managing care of this patient today ____ minutes.
[2023-10-07 20:00] VITALS: BP 104/58; PULSE 99; RESP 16; TEMP 36.5; O2SAT 100
[2023-10-07] MEDS: Atorvastatin Calcium 10 MG TABLET PO (21:05)
[2023-10-07] MEDS: HaloperidoL 1 MG TABLET 2 MG PO (21:05)
[2023-10-08 08:20] VITALS: BP 138/80; PULSE 101; RESP 16; TEMP 36.7; O2SAT 95
[2023-10-08] MEDS: Memantine HCl 5 MG TABLET PO ×2 (08:56→21:24)
[2023-10-08] MEDS: OLANZapine 10 MG TABLET PO ×2 (08:56→21:24)
[2023-10-08] MEDS: HaloperidoL 1 MG TABLET PO ×2 (08:56→12:48)
[2023-10-08] MEDS: DULoxetine HCl 60 MG CAPSULE.DR PO (08:56)
[2023-10-08] MEDS: Ascorbic Acid 500 MG TABLET 1000 MG PO (08:56)
--- NOTE | 2023-10-08 10:31 | P.PNPSI_ITS ---
Subjective Subjective Date of Service: 10/08/23 Reason For Visit: Psychosis Subjective Notes: Conditional Voluntary Interim History: Patient was seen and discussed in rounds today. Records and plans were reviewed. She continues to be isolative but pleasant and cooperative. Still has some auditory hallucinations which are not too intrusive and tolerable. Eating and sleeping adequately. No changes were made today Review of Systems Review of Systems Yes all other systems are reviewed and are negative Mental Status Exam Mental Status Exam Patient Appearance: Appropriate Patient Orientation: Person and Situation Level of Consciousness: Awake and Appropriate Patient Behavior: Guarded and Passive Mood Description: Withdrawn Affect Description: Constricted Patient Cognition Impaired: Yes Ability to Follow Directions: Good Speech Pattern: Clear Diagnostics Vital Signs (24Hr): Vital Signs - 24 hr 10/07/23 20:00 10/08/23 08:20 Temperature 97.7 F 98.1 F Pulse Rate 99 101 H Respiratory Rate 16 16 Blood Pressure 104/58 L 138/80 Pulse Oximetry 100 95 Oxygen Delivery Method Room Air Room Air BMI result Body Mass Index 26.1 Labs 09/21/23 13:20 09/22/23 07:56 Imaging Radiology Impressions: ITS Impressions Head CT 09/25/23 11:25 IMPRESSION: 1. Mild to moderate global cerebral volume loss with asymmetric prominence of the left hemispheric sulci which may reflect a slight predilection for the left cerebral hemisphere. Mild chronic microangiopathic changes. 2. Asymmetrically prominent lateral right cerebellar folia may reflect an arachnoid cyst. 3. Some aerosolized secretions in the right sphenoid sinus and posterior right ethmoid air cell can be correlated clinically for acute sinusitis. Medications Medications Current Medications Acetaminophen (Acetaminophen 325 Mg Tablet) 650 mg PO Q6H PRN PRN Reason: Headache/Pain Mild Scale (1-3) Last Admin: 09/23/23 06:31 Dose: 650 mg Al Hydroxide/Mg Hydroxide (Magnesium Hydrox/Alum Hydrox 30 Ml Oral.Susp) 30 ml PO Q6H PRN PRN Reason: Heartburn/Nausea Ascorbic Acid (Ascorbic Acid 500 Mg Tablet) 1,000 mg PO DAILY [facility] Last Admin: 10/08/23 08:56 Dose: 1,000 mg Atorvastatin Calcium (Atorvastatin Calcium 10 Mg Tablet) 10 mg PO BEDTIME [facility] Last Admin: 10/07/23 21:05 Dose: 10 mg Duloxetine HCl (Duloxetine Hcl 60 Mg Capsule.Dr) 60 mg PO DAILY [facility] Last Admin: 10/08/23 08:56 Dose: 60 mg Haloperidol (Haloperidol 1 Mg Tablet) 2 mg PO BEDTIME [facility] Last Admin: 10/07/23 21:05 Dose: 2 mg Haloperidol (Haloperidol 1 Mg Tablet) 1 mg PO BID@0830,1330 [facility] Last Admin: 10/08/23 08:56 Dose: 1 mg Hydroxyzine HCl (Hydroxyzine Hcl 25 Mg Tablet) 25 mg PO Q6H PRN PRN Reason: Anxiety Magnesium Hydroxide (Milk Of Magnesia 30 Ml Oral.Susp) 30 ml PO DAILY PRN PRN Reason: Constipation Memantine (Memantine Hcl 5 Mg Tablet) 5 mg PO BID [facility] Last Admin: 10/08/23 08:56 Dose: 5 mg Non-Formulary Medication (Secukinumab [Cosentyx Pen (2 Pens)]) 150 mg SUBCUT Q28D [facility] Olanzapine (Olanzapine 10 Mg Tablet) 10 mg PO BID [facility] Last Admin: 10/08/23 08:56 Dose: 10 mg Trazodone HCl (Trazodone Hcl 50 Mg Tablet) 50 mg PO BEDTIME MRX1 PRN PRN Reason: Insomnia Last Admin: 10/04/23 20:38 Dose: 50 mg Allergies Allergies Allergy/AdvReac Type Severity Reaction Status Date / Time No Known Allergies Allergy Verified 09/21/23 13:00 Assessment & Plan Assessment & Plan (1) Psychosis: Status: Acute Code(s): F29 - Unspecified psychosis not due to a substance or known physiological condition Plan The patient is an elderly female with a past history of auditory hallucinations for the last 7 or 8 years with a prior admission into the hospital at [facility]. She had a past history of depression when she was younger hearing Plan 1. Continue with Zyprexa 10 mg p.o. b.i.d.. 2. Continue [address] scan without contrast head on September 24. It showed microvascular disease but no focal lesion. 4. Start haloperidol 1 mg p.o. q.h.s. on September 25. We are increasing up to 2 mg p.o. q.h.s. on September 27. On September 29, Haldol was increased up to 1 mg po am 2 hs. On October 03 we increase it Haldol to 1 mg in the morning, 1 mg in the afternoon and 2 mg at bedtime. 5. Start Namenda 5 mg p.o. q.h.s. for dementia. It was increased to 5 mg p.o. b.i.d. on October 0410/06: Continue current regimen and plans 10/07: Continue current regimen and plans Reason for continued inpatient stay Substantial Risk for: med/psych decompensation Time Spent With Patient Time: Total time managing care of this patient today ____ minutes.
[2023-10-08 20:00] VITALS: BP 115/58; PULSE 100; RESP 16; TEMP 36.6; O2SAT 94
[2023-10-08] MEDS: HaloperidoL 1 MG TABLET 2 MG PO (21:23)
[2023-10-08] MEDS: traZODone HCL 50 MG TABLET PO (21:24)
[2023-10-08] MEDS: Atorvastatin Calcium 10 MG TABLET PO (21:24)
[2023-10-09 08:00] VITALS: BP 131/72; PULSE 95; RESP 16; TEMP 36.1; O2SAT 95
[2023-10-09] MEDS: DULoxetine HCl 60 MG CAPSULE.DR PO (08:41)
[2023-10-09] MEDS: OLANZapine 10 MG TABLET PO ×2 (08:41→20:43)
[2023-10-09] MEDS: Memantine HCl 5 MG TABLET PO ×2 (08:41→20:42)
[2023-10-09] MEDS: HaloperidoL 1 MG TABLET PO ×2 (08:41→12:49)
[2023-10-09] MEDS: Ascorbic Acid 500 MG TABLET 1000 MG PO (08:41)
--- NOTE | 2023-10-09 11:24 | HO.PSYCHPN ---
Subjective Subjective Date of Service: 10/09/23 Reason For Visit: Psychosis Subjective Notes: Conditional Voluntary Interim History: The nursing staff reported the patient had been fully compliant with treatment, she reports improvement of her auditory hallucinations and she has attend to all the groups. The social service assistant reported that the patient and the patient's family are in agreement for referrals to assisted living facility. On interview the patient denies new symptoms she reports less auditory hallucinations but still some symptoms. No EPS with the increased of Haldol. She agreed ot increase Haldol up to 3 mg po qhs. Mental Status Exam Mental Status Exam Patient Appearance: Appropriate Patient Orientation: Person and Situation Level of Consciousness: Awake and Appropriate Patient Behavior: Guarded and Passive Mood Description: Withdrawn Affect Description: Constricted Patient Cognition Impaired: Yes Ability to Follow Directions: Good Speech Pattern: Clear Hallucinations: Auditory Delusions: Ideas of Reference Thought Process: Distracted Thought Content: positive for [place] and positive for Circumstantial Judgement: Fair Diagnostics Vital Signs (24Hr): Vital Signs - 24 hr 10/08/23 20:00 10/09/23 08:00 Temperature 97.9 F 96.9 F Pulse Rate 100 95 Respiratory Rate 16 16 Blood Pressure 115/58 L 131/72 Pulse Oximetry 94 95 Oxygen Delivery Method Room Air Room Air BMI result Body Mass Index 26.1 Labs 09/21/23 13:20 09/22/23 07:56 Imaging Radiology Impressions: ITS Impressions Head CT 09/25/23 11:25 IMPRESSION: 1. Mild to moderate global cerebral volume loss with asymmetric prominence of the left hemispheric sulci which may reflect a slight predilection for the left cerebral hemisphere. Mild chronic microangiopathic changes. 2. Asymmetrically prominent lateral right cerebellar folia may reflect an arachnoid cyst. 3. Some aerosolized secretions in the right sphenoid sinus and posterior right ethmoid air cell can be correlated clinically for acute sinusitis. Medications Medications Current Medications Acetaminophen (Acetaminophen 325 Mg Tablet) 650 mg PO Q6H PRN PRN Reason: Headache/Pain Mild Scale (1-3) Last Admin: 09/23/23 06:31 Dose: 650 mg Al Hydroxide/Mg Hydroxide (Magnesium Hydrox/Alum Hydrox 30 Ml Oral.Susp) 30 ml PO Q6H PRN PRN Reason: Heartburn/Nausea Ascorbic Acid (Ascorbic Acid 500 Mg Tablet) 1,000 mg PO DAILY [facility] Last Admin: 10/09/23 08:41 Dose: 1,000 mg Atorvastatin Calcium (Atorvastatin Calcium 10 Mg Tablet) 10 mg PO BEDTIME [facility] Last Admin: 10/08/23 21:24 Dose: 10 mg Duloxetine HCl (Duloxetine Hcl 60 Mg Capsule.Dr) 60 mg PO DAILY [facility] Last Admin: 10/09/23 08:41 Dose: 60 mg Haloperidol (Haloperidol 1 Mg Tablet) 2 mg PO BEDTIME [facility] Last Admin: 10/08/23 21:23 Dose: 2 mg Haloperidol (Haloperidol 1 Mg Tablet) 1 mg PO BID@0830,1330 [facility] Last Admin: 10/09/23 08:41 Dose: 1 mg Hydroxyzine HCl (Hydroxyzine Hcl 25 Mg Tablet) 25 mg PO Q6H PRN PRN Reason: Anxiety Magnesium Hydroxide (Milk Of Magnesia 30 Ml Oral.Susp) 30 ml PO DAILY PRN PRN Reason: Constipation Memantine (Memantine Hcl 5 Mg Tablet) 5 mg PO BID [facility] Last Admin: 10/09/23 08:41 Dose: 5 mg Non-Formulary Medication (Secukinumab [Cosentyx Pen (2 Pens)]) 150 mg SUBCUT Q28D [facility] Olanzapine (Olanzapine 10 Mg Tablet) 10 mg PO BID [facility] Last Admin: 10/09/23 08:41 Dose: 10 mg Trazodone HCl (Trazodone Hcl 50 Mg Tablet) 50 mg PO BEDTIME MRX1 PRN PRN Reason: Insomnia Last Admin: 10/08/23 21:24 Dose: 50 mg Allergies Allergies Allergy/AdvReac Type Severity Reaction Status Date / Time No Known Allergies Allergy Verified 09/21/23 13:00 Assessment & Plan Assessment & Plan (1) Psychosis: Status: Acute Code(s): F29 - Unspecified psychosis not due to a substance or known physiological condition Plan The patient is an elderly female with a past history of auditory hallucinations for the last 7 or 8 years with a prior admission into the hospital at [facility]. She had a past history of depression when she was younger hearing Plan 1. Continue with Zyprexa 10 mg p.o. b.i.d.. 2. Continue [address] scan without contrast head on September 24. It showed microvascular disease but no focal lesion. 4. Start haloperidol 1 mg p.o. q.h.s. on September 25. We are increasing up to 2 mg p.o. q.h.s. on September 27. On September 29, Haldol was increased up to 1 mg po am 2 hs. On October 03 we increase it Haldol to 1 mg in the morning, 1 mg in the afternoon and 2 mg at bedtime. On October 08 we increase Haldol up to 3 mg p.o. q.h.s. total dose of 5 mg a day. 5. Start Namenda 5 mg p.o. q.h.s. for dementia. It was increased to 5 mg p.o. b.i.d. on October 04 6. Start on discharge planning Reason for continued inpatient stay Substantial Risk for: inability to function, rapid decompensation and med/psych decompensation Time Spent With Patient Time: Total time managing care of this patient today __20__ minutes.
[2023-10-09 20:00] VITALS: BP 97/58; PULSE 110; RESP 18; TEMP 36.7; O2SAT 94
[2023-10-09] MEDS: HaloperidoL 1 MG TABLET 3 MG PO (20:42)
[2023-10-09] MEDS: traZODone HCL 50 MG TABLET PO (20:42)
[2023-10-09] MEDS: Atorvastatin Calcium 10 MG TABLET PO (20:43)
[2023-10-10 08:00] VITALS: BP 133/91; PULSE 101; RESP 18; TEMP 36.1; O2SAT 96
[2023-10-10] MEDS: Memantine HCl 5 MG TABLET PO ×2 (08:11→20:14)
[2023-10-10] MEDS: HaloperidoL 1 MG TABLET PO ×2 (08:11→13:26)
[2023-10-10] MEDS: OLANZapine 10 MG TABLET PO ×2 (08:11→20:14)
[2023-10-10] MEDS: Ascorbic Acid 500 MG TABLET 1000 MG PO (08:11)
[2023-10-10] MEDS: DULoxetine HCl 60 MG CAPSULE.DR PO (08:11)
--- NOTE | 2023-10-10 12:43 | HO.PSYCHPN ---
Subjective Subjective Date of Service: 10/10/23 Reason For Visit: Psychosis Subjective Notes: Conditional Voluntary Interim History: The nursing staff reported that she has been cooperative, pleasant, fully compliant with treatment. On interview, she denies side effects with the increase of Haldol. The SW is arranging PACE services for discharge. Mental Status Exam Mental Status Exam Patient Appearance: Appropriate Patient Orientation: Person and Situation Level of Consciousness: Awake and Appropriate Patient Behavior: Guarded and Passive Mood Description: Calm Affect Description: Constricted Patient Cognition Impaired: Yes Ability to Follow Directions: Good Speech Pattern: Clear Hallucinations: Auditory Delusions: Not Present Thought Process: Distracted Judgement: Fair Diagnostics Vital Signs (24Hr): Vital Signs - 24 hr 10/09/23 20:00 10/10/23 08:00 Temperature 98.1 F 97.0 F Pulse Rate 110 H 101 H Respiratory Rate 18 18 Blood Pressure 97/58 L 133/91 H Pulse Oximetry 94 96 Oxygen Delivery Method Room Air Room Air BMI result Body Mass Index 26.1 Labs 09/21/23 13:20 09/22/23 07:56 Imaging Radiology Impressions: ITS Impressions Head CT 09/25/23 11:25 IMPRESSION: 1. Mild to moderate global cerebral volume loss with asymmetric prominence of the left hemispheric sulci which may reflect a slight predilection for the left cerebral hemisphere. Mild chronic microangiopathic changes. 2. Asymmetrically prominent lateral right cerebellar folia may reflect an arachnoid cyst. 3. Some aerosolized secretions in the right sphenoid sinus and posterior right ethmoid air cell can be correlated clinically for acute sinusitis. Medications Medications Current Medications Acetaminophen (Acetaminophen 325 Mg Tablet) 650 mg PO Q6H PRN PRN Reason: Headache/Pain Mild Scale (1-3) Last Admin: 09/23/23 06:31 Dose: 650 mg Al Hydroxide/Mg Hydroxide (Magnesium Hydrox/Alum Hydrox 30 Ml Oral.Susp) 30 ml PO Q6H PRN PRN Reason: Heartburn/Nausea Ascorbic Acid (Ascorbic Acid 500 Mg Tablet) 1,000 mg PO DAILY [facility] Last Admin: 10/10/23 08:11 Dose: 1,000 mg Atorvastatin Calcium (Atorvastatin Calcium 10 Mg Tablet) 10 mg PO BEDTIME [facility] Last Admin: 10/09/23 20:43 Dose: 10 mg Duloxetine HCl (Duloxetine Hcl 60 Mg Capsule.Dr) 60 mg PO DAILY [facility] Last Admin: 10/10/23 08:11 Dose: 60 mg Haloperidol (Haloperidol 1 Mg Tablet) 1 mg PO BID@0830,1330 [facility] Last Admin: 10/10/23 08:11 Dose: 1 mg Haloperidol (Haloperidol 1 Mg Tablet) 3 mg PO BEDTIME [facility] Last Admin: 10/09/23 20:42 Dose: 3 mg Hydroxyzine HCl (Hydroxyzine Hcl 25 Mg Tablet) 25 mg PO Q6H PRN PRN Reason: Anxiety Magnesium Hydroxide (Milk Of Magnesia 30 Ml Oral.Susp) 30 ml PO DAILY PRN PRN Reason: Constipation Memantine (Memantine Hcl 5 Mg Tablet) 5 mg PO BID [facility] Last Admin: 10/10/23 08:11 Dose: 5 mg Olanzapine (Olanzapine 10 Mg Tablet) 10 mg PO BID [facility] Last Admin: 10/10/23 08:11 Dose: 10 mg Trazodone HCl (Trazodone Hcl 50 Mg Tablet) 50 mg PO BEDTIME MRX1 PRN PRN Reason: Insomnia Last Admin: 10/09/23 20:42 Dose: 50 mg Allergies Allergies Allergy/AdvReac Type Severity Reaction Status Date / Time No Known Allergies Allergy Verified 09/21/23 13:00 Assessment & Plan Assessment & Plan (1) Psychosis: Status: Acute Code(s): F29 - Unspecified psychosis not due to a substance or known physiological condition Plan The patient is an elderly female with a past history of auditory hallucinations for the last 7 or 8 years with a prior admission into the hospital at [facility]. She had a past history of depression when she was younger hearing Plan 1. Continue with Zyprexa 10 mg p.o. b.i.d.. 2. Continue [address] scan without contrast head on September 24. It showed microvascular disease but no focal lesion. 4. Start haloperidol 1 mg p.o. q.h.s. on September 25. We are increasing up to 2 mg p.o. q.h.s. on September 27. On September 29, Haldol was increased up to 1 mg po am 2 hs. On October 03 we increase it Haldol to 1 mg in the morning, 1 mg in the afternoon and 2 mg at bedtime. On October 08 we increase Haldol up to 3 mg p.o. q.h.s. total dose of 5 mg a day. 5. Start Namenda 5 mg p.o. q.h.s. for dementia. It was increased to 5 mg p.o. b.i.d. on October 04 6. Start on discharge planning Reason for continued inpatient stay Substantial Risk for: inability to function, rapid decompensation and med/psych decompensation Time Spent With Patient Time: Total time managing care of this patient today _20___ minutes.
[2023-10-10] MEDS: HaloperidoL 1 MG TABLET 3 MG PO (20:14)
[2023-10-10] MEDS: Atorvastatin Calcium 10 MG TABLET PO (20:14)
[2023-10-10 20:16] VITALS: BP 120/63; PULSE 112; RESP 16; TEMP 35.8; O2SAT 94
[2023-10-11 08:00] VITALS: BP 130/63; PULSE 109; RESP 18; TEMP 36.4; O2SAT 93
[2023-10-11] MEDS: HaloperidoL 1 MG TABLET PO ×2 (09:36→13:53)
[2023-10-11] MEDS: Ascorbic Acid 500 MG TABLET 1000 MG PO (09:36)
[2023-10-11] MEDS: DULoxetine HCl 60 MG CAPSULE.DR PO (09:37)
[2023-10-11] MEDS: OLANZapine 10 MG TABLET PO ×2 (09:37→20:53)
[2023-10-11] MEDS: Memantine HCl 5 MG TABLET PO ×2 (09:37→20:53)
--- NOTE | 2023-10-11 14:07 | HO.PSYCHPN ---
Subjective Subjective Date of Service: 10/11/23 Reason For Visit: Psychosis Subjective Notes: Conditional Voluntary Interim History: The nursing staff reported the patient has attended to groups she slept 8 hours. The occupational therapist reported that she did evening spontaneous joke. The hospice social worker is trying to work on placement at this moment. On interview the patient reports sporadic auditory hallucinations but she feels much better with increase the Haldol. No evidence of side-effects. Mental Status Exam Mental Status Exam Patient Appearance: Appropriate Patient Orientation: Person and Situation Level of Consciousness: Awake and Appropriate Patient Behavior: Guarded and Passive Mood Description: Withdrawn Affect Description: Constricted Patient Cognition Impaired: Yes Ability to Follow Directions: Good Speech Pattern: Clear Hallucinations: Auditory Delusions: Ideas of Reference Thought Process: Distracted and Slowed Thinking Thought Content: positive for [place] and positive for [place] of Content Judgement: Fair Diagnostics Vital Signs (24Hr): Vital Signs - 24 hr 10/10/23 20:16 10/11/23 08:00 Temperature 96.5 F L 97.6 F Pulse Rate 112 H 109 H Respiratory Rate 16 18 Blood Pressure 120/63 130/63 Pulse Oximetry 94 93 Oxygen Delivery Method Room Air Room Air BMI result Body Mass Index 26.1 Labs 09/21/23 13:20 09/22/23 07:56 Imaging Radiology Impressions: ITS Impressions Head CT 09/25/23 11:25 IMPRESSION: 1. Mild to moderate global cerebral volume loss with asymmetric prominence of the left hemispheric sulci which may reflect a slight predilection for the left cerebral hemisphere. Mild chronic microangiopathic changes. 2. Asymmetrically prominent lateral right cerebellar folia may reflect an arachnoid cyst. 3. Some aerosolized secretions in the right sphenoid sinus and posterior right ethmoid air cell can be correlated clinically for acute sinusitis. Medications Medications Current Medications Acetaminophen (Acetaminophen 325 Mg Tablet) 650 mg PO Q6H PRN PRN Reason: Headache/Pain Mild Scale (1-3) Last Admin: 09/23/23 06:31 Dose: 650 mg Al Hydroxide/Mg Hydroxide (Magnesium Hydrox/Alum Hydrox 30 Ml Oral.Susp) 30 ml PO Q6H PRN PRN Reason: Heartburn/Nausea Ascorbic Acid (Ascorbic Acid 500 Mg Tablet) 1,000 mg PO DAILY [facility] Last Admin: 10/11/23 09:36 Dose: 1,000 mg Atorvastatin Calcium (Atorvastatin Calcium 10 Mg Tablet) 10 mg PO BEDTIME [facility] Last Admin: 10/10/23 20:14 Dose: 10 mg Duloxetine HCl (Duloxetine Hcl 60 Mg Capsule.Dr) 60 mg PO DAILY [facility] Last Admin: 10/11/23 09:37 Dose: 60 mg Haloperidol (Haloperidol 1 Mg Tablet) 1 mg PO BID@0830,1330 [facility] Last Admin: 10/11/23 13:53 Dose: 1 mg Haloperidol (Haloperidol 1 Mg Tablet) 3 mg PO BEDTIME [facility] Last Admin: 10/10/23 20:14 Dose: 3 mg Hydroxyzine HCl (Hydroxyzine Hcl 25 Mg Tablet) 25 mg PO Q6H PRN PRN Reason: Anxiety Magnesium Hydroxide (Milk Of Magnesia 30 Ml Oral.Susp) 30 ml PO DAILY PRN PRN Reason: Constipation Memantine (Memantine Hcl 5 Mg Tablet) 5 mg PO BID [facility] Last Admin: 10/11/23 09:37 Dose: 5 mg Olanzapine (Olanzapine 10 Mg Tablet) 10 mg PO BID [facility] Last Admin: 10/11/23 09:37 Dose: 10 mg Trazodone HCl (Trazodone Hcl 50 Mg Tablet) 50 mg PO BEDTIME MRX1 PRN PRN Reason: Insomnia Last Admin: 10/09/23 20:42 Dose: 50 mg Allergies Allergies Allergy/AdvReac Type Severity Reaction Status Date / Time No Known Allergies Allergy Verified 09/21/23 13:00 Assessment & Plan Assessment & Plan (1) Psychosis: Status: Acute Code(s): F29 - Unspecified psychosis not due to a substance or known physiological condition Plan The patient is an elderly female with a past history of auditory hallucinations for the last 7 or 8 years with a prior admission into the hospital at [facility]. She had a past history of depression when she was younger hearing Plan 1. Continue with Zyprexa 10 mg p.o. b.i.d.. 2. Continue [address] scan without contrast head on September 24. It showed microvascular disease but no focal lesion. 4. Start haloperidol 1 mg p.o. q.h.s. on September 25. We are increasing up to 2 mg p.o. q.h.s. on September 27. On September 29, Haldol was increased up to 1 mg po am 2 hs. On October 03 we increase it Haldol to 1 mg in the morning, 1 mg in the afternoon and 2 mg at bedtime. On October 08 we increase Haldol up to 3 mg p.o. q.h.s. total dose of 5 mg a day. 5. Start Namenda 5 mg p.o. q.h.s. for dementia. It was increased to 5 mg p.o. b.i.d. on October 04 6. Start on discharge planning Reason for continued inpatient stay Substantial Risk for: inability to function, rapid decompensation and med/psych decompensation Time Spent With Patient Time: Total time managing care of this patient today ___20_ minutes.
[2023-10-11 20:00] VITALS: BP 112/57; PULSE 88; RESP 18; TEMP 36.7; O2SAT 94
[2023-10-11] MEDS: Atorvastatin Calcium 10 MG TABLET PO (20:53)
[2023-10-11] MEDS: HaloperidoL 1 MG TABLET 3 MG PO (20:53)
[2023-10-12 07:00] VITALS: BMI 26.7
[2023-10-12 08:00] VITALS: BP 136/80; PULSE 97; RESP 18; TEMP 36; O2SAT 94
--- NOTE | 2023-10-12 09:07 | HO.PSYCHPN ---
Subjective Subjective Date of Service: 10/12/23 Reason For Visit: Psychosis Subjective Notes: Conditional Voluntary Interim History: Pt slept through the night. She reports hearing voices at night of people arguing. She reports mood is good. No SI/HI. She is eating well. No behavioral concerns. Continue current medications. Review of Systems Review of Systems Yes all other systems are reviewed and are negative Mental Status Exam Mental Status Exam Patient Appearance: Appropriate Patient Orientation: Person and Situation Level of Consciousness: Awake and Appropriate Patient Behavior: Guarded and Passive Mood Description: Withdrawn Affect Description: Constricted Patient Cognition Impaired: Yes Ability to Follow Directions: Good Speech Pattern: Clear Diagnostics Vital Signs (24Hr): Vital Signs - 24 hr 10/11/23 20:00 10/12/23 08:00 Temperature 98.0 F 96.8 F Pulse Rate 88 97 Respiratory Rate 18 18 Blood Pressure 112/57 L 136/80 Pulse Oximetry 94 94 Oxygen Delivery Method Room Air Room Air BMI result Body Mass Index 26.1 Labs 09/21/23 13:20 09/22/23 07:56 Imaging Radiology Impressions: ITS Impressions Head CT 09/25/23 11:25 IMPRESSION: 1. Mild to moderate global cerebral volume loss with asymmetric prominence of the left hemispheric sulci which may reflect a slight predilection for the left cerebral hemisphere. Mild chronic microangiopathic changes. 2. Asymmetrically prominent lateral right cerebellar folia may reflect an arachnoid cyst. 3. Some aerosolized secretions in the right sphenoid sinus and posterior right ethmoid air cell can be correlated clinically for acute sinusitis. Medications Medications Current Medications Acetaminophen (Acetaminophen 325 Mg Tablet) 650 mg PO Q6H PRN PRN Reason: Headache/Pain Mild Scale (1-3) Last Admin: 09/23/23 06:31 Dose: 650 mg Al Hydroxide/Mg Hydroxide (Magnesium Hydrox/Alum Hydrox 30 Ml Oral.Susp) 30 ml PO Q6H PRN PRN Reason: Heartburn/Nausea Ascorbic Acid (Ascorbic Acid 500 Mg Tablet) 1,000 mg PO DAILY [facility] Last Admin: 10/11/23 09:36 Dose: 1,000 mg Atorvastatin Calcium (Atorvastatin Calcium 10 Mg Tablet) 10 mg PO BEDTIME [facility] Last Admin: 10/11/23 20:53 Dose: 10 mg Duloxetine HCl (Duloxetine Hcl 60 Mg Capsule.Dr) 60 mg PO DAILY [facility] Last Admin: 10/11/23 09:37 Dose: 60 mg Haloperidol (Haloperidol 1 Mg Tablet) 1 mg PO BID@0830,1330 [facility] Last Admin: 10/11/23 13:53 Dose: 1 mg Haloperidol (Haloperidol 1 Mg Tablet) 3 mg PO BEDTIME [facility] Last Admin: 10/11/23 20:53 Dose: 3 mg Hydroxyzine HCl (Hydroxyzine Hcl 25 Mg Tablet) 25 mg PO Q6H PRN PRN Reason: Anxiety Magnesium Hydroxide (Milk Of Magnesia 30 Ml Oral.Susp) 30 ml PO DAILY PRN PRN Reason: Constipation Memantine (Memantine Hcl 5 Mg Tablet) 5 mg PO BID [facility] Last Admin: 10/11/23 20:53 Dose: 5 mg Olanzapine (Olanzapine 10 Mg Tablet) 10 mg PO BID [facility] Last Admin: 10/11/23 20:53 Dose: 10 mg Trazodone HCl (Trazodone Hcl 50 Mg Tablet) 50 mg PO BEDTIME MRX1 PRN PRN Reason: Insomnia Last Admin: 10/09/23 20:42 Dose: 50 mg Allergies Allergies Allergy/AdvReac Type Severity Reaction Status Date / Time No Known Allergies Allergy Verified 09/21/23 13:00 Assessment & Plan Assessment & Plan (1) Psychosis: Status: Acute Code(s): F29 - Unspecified psychosis not due to a substance or known physiological condition Plan The patient is an elderly female with a past history of auditory hallucinations for the last 7 or 8 years with a prior admission into the hospital at [facility]. She had a past history of depression when she was younger hearing Plan 1. Continue with Zyprexa 10 mg p.o. b.i.d.. 2. Continue [address] scan without contrast head on September 24. It showed microvascular disease but no focal lesion. 4. Start haloperidol 1 mg p.o. q.h.s. on September 25. We are increasing up to 2 mg p.o. q.h.s. on September 27. On September 29, Haldol was increased up to 1 mg po am 2 hs. On October 03 we increase it Haldol to 1 mg in the morning, 1 mg in the afternoon and 2 mg at bedtime. On October 08 we increase Haldol up to 3 mg p.o. q.h.s. total dose of 5 mg a day. 5. Start Namenda 5 mg p.o. q.h.s. for dementia. It was increased to 5 mg p.o. b.i.d. on October 04. Start on discharge planning Reason for continued inpatient stay Substantial Risk for: inability to function Time Spent With Patient Time: Total time managing care of this patient today ____ minutes.
[2023-10-12] MEDS: DULoxetine HCl 60 MG CAPSULE.DR PO (10:43)
[2023-10-12] MEDS: Ascorbic Acid 500 MG TABLET 1000 MG PO (10:44)
[2023-10-12] MEDS: HaloperidoL 1 MG TABLET PO ×2 (10:45→13:01)
[2023-10-12] MEDS: Memantine HCl 5 MG TABLET PO ×2 (10:45→21:05)
[2023-10-12] MEDS: OLANZapine 10 MG TABLET PO ×2 (10:45→21:05)
[2023-10-12 20:00] VITALS: BP 116/59; PULSE 100; RESP 18; TEMP 36.3; O2SAT 92
[2023-10-12] MEDS: HaloperidoL 1 MG TABLET 3 MG PO (21:05)
[2023-10-12] MEDS: Atorvastatin Calcium 10 MG TABLET PO (21:05)
--- NOTE | 2023-10-13 08:25 | P.PNPSI_ITS ---
Subjective Subjective Date of Service: 10/13/23 Reason For Visit: Psychosis Subjective Notes: Conditional Voluntary Interim History: Pt slept through the night. She reports hearing voices at night of people arguing. She reports mood is good. No SI/HI. She reports feeling tired and in bed. No behavioral concerns. Review of Systems Review of Systems Yes all other systems are reviewed and are negative Mental Status Exam Mental Status Exam Patient Appearance: Appropriate Patient Orientation: Person and Situation Level of Consciousness: Awake and Appropriate Patient Behavior: Guarded and Passive Mood Description: Withdrawn Affect Description: Constricted Patient Cognition Impaired: Yes Ability to Follow Directions: Good Speech Pattern: Clear Diagnostics Vital Signs (24Hr): Vital Signs - 24 hr 10/12/23 20:00 Temperature 97.4 F Pulse Rate 100 Respiratory Rate 18 Blood Pressure 116/59 L Pulse Oximetry 92 Oxygen Delivery Method Room Air BMI result Body Mass Index 26.7 Labs 09/21/23 13:20 09/22/23 07:56 Imaging Radiology Impressions: ITS Impressions Head CT 09/25/23 11:25 IMPRESSION: 1. Mild to moderate global cerebral volume loss with asymmetric prominence of the left hemispheric sulci which may reflect a slight predilection for the left cerebral hemisphere. Mild chronic microangiopathic changes. 2. Asymmetrically prominent lateral right cerebellar folia may reflect an arachnoid cyst. 3. Some aerosolized secretions in the right sphenoid sinus and posterior right ethmoid air cell can be correlated clinically for acute sinusitis. Medications Medications Current Medications Acetaminophen (Acetaminophen 325 Mg Tablet) 650 mg PO Q6H PRN PRN Reason: Headache/Pain Mild Scale (1-3) Last Admin: 09/23/23 06:31 Dose: 650 mg Al Hydroxide/Mg Hydroxide (Magnesium Hydrox/Alum Hydrox 30 Ml Oral.Susp) 30 ml PO Q6H PRN PRN Reason: Heartburn/Nausea Ascorbic Acid (Ascorbic Acid 500 Mg Tablet) 1,000 mg PO DAILY [facility] Last Admin: 10/12/23 10:44 Dose: 1,000 mg Atorvastatin Calcium (Atorvastatin Calcium 10 Mg Tablet) 10 mg PO BEDTIME [facility] Last Admin: 10/12/23 21:05 Dose: 10 mg Duloxetine HCl (Duloxetine Hcl 60 Mg Capsule.Dr) 60 mg PO DAILY [facility] Last Admin: 10/12/23 10:43 Dose: 60 mg Haloperidol (Haloperidol 1 Mg Tablet) 1 mg PO BID@0830,1330 [facility] Last Admin: 10/12/23 13:01 Dose: 1 mg Haloperidol (Haloperidol 1 Mg Tablet) 3 mg PO BEDTIME [facility] Last Admin: 10/12/23 21:05 Dose: 3 mg Hydroxyzine HCl (Hydroxyzine Hcl 25 Mg Tablet) 25 mg PO Q6H PRN PRN Reason: Anxiety Magnesium Hydroxide (Milk Of Magnesia 30 Ml Oral.Susp) 30 ml PO DAILY PRN PRN Reason: Constipation Memantine (Memantine Hcl 5 Mg Tablet) 5 mg PO BID [facility] Last Admin: 10/12/23 21:05 Dose: 5 mg Olanzapine (Olanzapine 10 Mg Tablet) 10 mg PO BID [facility] Last Admin: 10/12/23 21:05 Dose: 10 mg Trazodone HCl (Trazodone Hcl 50 Mg Tablet) 50 mg PO BEDTIME MRX1 PRN PRN Reason: Insomnia Last Admin: 10/09/23 20:42 Dose: 50 mg Allergies Allergies Allergy/AdvReac Type Severity Reaction Status Date / Time No Known Allergies Allergy Verified 09/21/23 13:00 Assessment & Plan Assessment & Plan (1) Psychosis: Status: Acute Code(s): F29 - Unspecified psychosis not due to a substance or known physiological condition Plan The patient is an elderly female with a past history of auditory hallucinations for the last 7 or 8 years with a prior admission into the hospital at [facility]. She had a past history of depression when she was younger hearing Plan 10/12 continue tx. Reason for continued inpatient stay Substantial Risk for: inability to function Time Spent With Patient Time: Total time managing care of this patient today ____ minutes.
[2023-10-13 08:45] VITALS: BP 118/64; PULSE 104; RESP 16; TEMP 36; O2SAT 95
[2023-10-13] MEDS: HaloperidoL 1 MG TABLET PO ×2 (08:46→13:11)
[2023-10-13] MEDS: DULoxetine HCl 60 MG CAPSULE.DR PO (08:46)
[2023-10-13] MEDS: Ascorbic Acid 500 MG TABLET 1000 MG PO (08:46)
[2023-10-13] MEDS: OLANZapine 10 MG TABLET PO ×2 (08:46→20:35)
[2023-10-13] MEDS: Memantine HCl 5 MG TABLET PO ×2 (08:46→20:35)
[2023-10-13 20:00] VITALS: BP 94/58; PULSE 102; RESP 18; TEMP 36.9; O2SAT 93
[2023-10-13] MEDS: HaloperidoL 1 MG TABLET 3 MG PO (20:34)
[2023-10-13] MEDS: Atorvastatin Calcium 10 MG TABLET PO (20:35)
[2023-10-13] MEDS: traZODone HCL 50 MG TABLET PO (20:35)
[2023-10-14 10:00] VITALS: BP 134/66; PULSE 104; RESP 15; TEMP 36.7; O2SAT 97
[2023-10-14] MEDS: Acetaminophen 325 MG TABLET 650 MG PO (10:01)
[2023-10-14] MEDS: DULoxetine HCl 60 MG CAPSULE.DR PO (10:01)
[2023-10-14] MEDS: Memantine HCl 5 MG TABLET PO ×2 (10:01→20:53)
[2023-10-14] MEDS: Ascorbic Acid 500 MG TABLET 1000 MG PO (10:01)
[2023-10-14] MEDS: OLANZapine 10 MG TABLET PO ×2 (10:01→20:53)
[2023-10-14] MEDS: HaloperidoL 1 MG TABLET PO ×2 (10:02→15:13)
--- NOTE | 2023-10-14 14:19 | HO.PSYCHPN ---
Subjective Subjective Date of Service: 10/14/23 Reason For Visit: Psychosis Subjective Notes: Conditional Voluntary Medical Problems Affecting Mental Status: No Interim History: 78 WF lying in bed whispering responses- says she has a headache Reports sleeping ok - seems confused about ? of medication side effects- Feels medications are helping and treatment here helping- very vague Medication Compliance: Yes Side effects from medications: No Attending Groups: Intermittent Review of Systems Acute medical concerns: No Medical Review of Systems: changed (headache - ) Review of Systems: could not ascertain if this is a frequent occurrence or unusual for patient Mental Status Exam Mental Status Exam Patient Appearance: Well Grooomed and Appropriate (a bit odd in that lying completely even on bed fully dressed) Patient Orientation: Person and Place Level of Consciousness: Awake Patient Behavior: Passive Mood Description: Flat Affect Description: Flat Ability to Follow Directions: Fair Speech Pattern: Whisper and Poor Articulation Thought Process: Distracted Thought Content: positive for [place] Depressive Symptoms: Unexplained Headaches (?) and Difficulty Concentrating Abnormal Motor Activity Signs and Symptoms: Psychomotor Retardation (? though fully dressed and made up- just lying very still) Judgement: Fair Diagnostics Vital Signs (24Hr): Vital Signs - 24 hr 10/13/23 20:00 10/14/23 10:00 Temperature 98.4 F 98.1 F Pulse Rate 102 H 104 H Respiratory Rate 18 15 Blood Pressure 94/58 L 134/66 Pulse Oximetry 93 97 Oxygen Delivery Method Room Air Room Air BMI result Body Mass Index 26.7 Labs 09/21/23 13:20 09/22/23 07:56 Imaging Radiology Impressions: ITS Impressions Head CT 09/25/23 11:25 IMPRESSION: 1. Mild to moderate global cerebral volume loss with asymmetric prominence of the left hemispheric sulci which may reflect a slight predilection for the left cerebral hemisphere. Mild chronic microangiopathic changes. 2. Asymmetrically prominent lateral right cerebellar folia may reflect an arachnoid cyst. 3. Some aerosolized secretions in the right sphenoid sinus and posterior right ethmoid air cell can be correlated clinically for acute sinusitis. Medications Medications Current Medications Acetaminophen (Acetaminophen 325 Mg Tablet) 650 mg PO Q6H PRN PRN Reason: Headache/Pain Mild Scale (1-3) Last Admin: 10/14/23 10:01 Dose: 650 mg Al Hydroxide/Mg Hydroxide (Magnesium Hydrox/Alum Hydrox 30 Ml Oral.Susp) 30 ml PO Q6H PRN PRN Reason: Heartburn/Nausea Ascorbic Acid (Ascorbic Acid 500 Mg Tablet) 1,000 mg PO DAILY [facility] Last Admin: 10/14/23 10:01 Dose: 1,000 mg Atorvastatin Calcium (Atorvastatin Calcium 10 Mg Tablet) 10 mg PO BEDTIME [facility] Last Admin: 10/13/23 20:35 Dose: 10 mg Duloxetine HCl (Duloxetine Hcl 60 Mg Capsule.Dr) 60 mg PO DAILY [facility] Last Admin: 10/14/23 10:01 Dose: 60 mg Haloperidol (Haloperidol 1 Mg Tablet) 1 mg PO BID@0830,1330 [facility] Last Admin: 10/14/23 10:02 Dose: 1 mg Haloperidol (Haloperidol 1 Mg Tablet) 3 mg PO BEDTIME [facility] Last Admin: 10/13/23 20:34 Dose: 3 mg Hydroxyzine HCl (Hydroxyzine Hcl 25 Mg Tablet) 25 mg PO Q6H PRN PRN Reason: Anxiety Magnesium Hydroxide (Milk Of Magnesia 30 Ml Oral.Susp) 30 ml PO DAILY PRN PRN Reason: Constipation Memantine (Memantine Hcl 5 Mg Tablet) 5 mg PO BID [facility] Last Admin: 10/14/23 10:01 Dose: 5 mg Olanzapine (Olanzapine 10 Mg Tablet) 10 mg PO BID [facility] Last Admin: 10/14/23 10:01 Dose: 10 mg Trazodone HCl (Trazodone Hcl 50 Mg Tablet) 50 mg PO BEDTIME MRX1 PRN PRN Reason: Insomnia Last Admin: 10/13/23 20:35 Dose: 50 mg Allergies Allergies Allergy/AdvReac Type Severity Reaction Status Date / Time No Known Allergies Allergy Verified 09/21/23 13:00 Assessment & Plan Assessment & Plan (1) Psychosis: Status: Acute Code(s): F29 - Unspecified psychosis not due to a substance or known physiological condition Plan The patient is an elderly female with a past history of auditory hallucinations for the last 7 or 8 years with a prior admission into the hospital at [facility]. She had a past history of depression when she was younger hearing Plan 10/12 continue tx. 10/13 on both haldol and olanzapine-and duloxetine- co headache today- [facility] Patient educated on: other (? if headache side effect of med adjustments or something she has had before) Informed Consent: further education needed Reason for continued inpatient stay Substantial Risk for: inability to function and rapid decompensation Time Spent With Patient Time: Total time managing care of this patient today ____ minutes.
[2023-10-14 20:00] VITALS: BP 121/66; PULSE 113; RESP 18; TEMP 36.3; O2SAT 94
[2023-10-14] MEDS: HaloperidoL 1 MG TABLET 3 MG PO (20:53)
[2023-10-14] MEDS: Atorvastatin Calcium 10 MG TABLET PO (20:53)
[2023-10-15 08:00] VITALS: BP 121/71; PULSE 102; RESP 15; TEMP 36.2; O2SAT 95
[2023-10-15] MEDS: Ascorbic Acid 500 MG TABLET 1000 MG PO (08:01)
[2023-10-15] MEDS: Memantine HCl 5 MG TABLET PO ×2 (08:02→21:07)
[2023-10-15] MEDS: HaloperidoL 1 MG TABLET PO ×2 (08:02→15:22)
[2023-10-15] MEDS: OLANZapine 10 MG TABLET PO ×2 (08:02→21:07)
[2023-10-15] MEDS: DULoxetine HCl 60 MG CAPSULE.DR PO (08:02)
--- NOTE | 2023-10-15 14:52 | P.PNPSI_ITS ---
Subjective Subjective Date of Service: 10/15/23 Reason For Visit: Psychosis Subjective Notes: Conditional Voluntary Interim History: 78 yo (?hard of hearing) reports ongoing depression 9/10 anxiety no si but ongoing AH(?VHsometimes of 2 men) saying they are going to take her doll collection- finds this upsetting- Pt was drooling when speaking with provider and has poor articulation- Provider had to repeat questions several times - Reports slept- Medication Compliance: Yes Side effects from medications: Yes (? drooling) Attending Groups: Intermittent Review of Systems Acute medical concerns: No Medical Review of Systems: changed Review of Systems: drooling? Mental Status Exam Mental Status Exam Patient Appearance: Well Grooomed Patient Orientation: Person, Place and Situation Level of Consciousness: Awake Patient Behavior: Appropriate and Good Eye Contact Mood Description: Anxious and Sad Affect Description: Blunted Ability to Follow Directions: Fair Speech Pattern: Garbled and Poor Articulation (has upper dentures) Hallucinations: Auditory and Visual Thought Process: Intact and Goal Oriented Thought Content: positive for Disorganized (?) and positive for [place] Depressive Symptoms: Increased Anxiety and Unexplained Headaches Abnormal Motor Activity Signs and Symptoms: Psychomotor Retardation Judgement: Fair Diagnostics Vital Signs (24Hr): Vital Signs - 24 hr 10/14/23 20:00 10/15/23 08:00 Temperature 97.4 F 97.1 F Pulse Rate 113 H 102 H Respiratory Rate 18 15 Blood Pressure 121/66 121/71 Pulse Oximetry 94 95 Oxygen Delivery Method Room Air Room Air BMI result Body Mass Index 26.7 Labs 09/21/23 13:20 09/22/23 07:56 Imaging Radiology Impressions: ITS Impressions Head CT 09/25/23 11:25 IMPRESSION: 1. Mild to moderate global cerebral volume loss with asymmetric prominence of the left hemispheric sulci which may reflect a slight predilection for the left cerebral hemisphere. Mild chronic microangiopathic changes. 2. Asymmetrically prominent lateral right cerebellar folia may reflect an arachnoid cyst. 3. Some aerosolized secretions in the right sphenoid sinus and posterior right ethmoid air cell can be correlated clinically for acute sinusitis. Medications Medications Current Medications Acetaminophen (Acetaminophen 325 Mg Tablet) 650 mg PO Q6H PRN PRN Reason: Headache/Pain Mild Scale (1-3) Last Admin: 10/14/23 10:01 Dose: 650 mg Al Hydroxide/Mg Hydroxide (Magnesium Hydrox/Alum Hydrox 30 Ml Oral.Susp) 30 ml PO Q6H PRN PRN Reason: Heartburn/Nausea Ascorbic Acid (Ascorbic Acid 500 Mg Tablet) 1,000 mg PO DAILY [facility] Last Admin: 10/15/23 08:01 Dose: 1,000 mg Atorvastatin Calcium (Atorvastatin Calcium 10 Mg Tablet) 10 mg PO BEDTIME [facility] Last Admin: 10/14/23 20:53 Dose: 10 mg Duloxetine HCl (Duloxetine Hcl 60 Mg Capsule.Dr) 60 mg PO DAILY [facility] Last Admin: 10/15/23 08:02 Dose: 60 mg Haloperidol (Haloperidol 1 Mg Tablet) 1 mg PO BID@0830,1330 [facility] Last Admin: 10/15/23 08:02 Dose: 1 mg Haloperidol (Haloperidol 1 Mg Tablet) 3 mg PO BEDTIME [facility] Last Admin: 10/14/23 20:53 Dose: 3 mg Hydroxyzine HCl (Hydroxyzine Hcl 25 Mg Tablet) 25 mg PO Q6H PRN PRN Reason: Anxiety Magnesium Hydroxide (Milk Of Magnesia 30 Ml Oral.Susp) 30 ml PO DAILY PRN PRN Reason: Constipation Memantine (Memantine Hcl 5 Mg Tablet) 5 mg PO BID [facility] Last Admin: 10/15/23 08:02 Dose: 5 mg Olanzapine (Olanzapine 10 Mg Tablet) 10 mg PO BID [facility] Last Admin: 10/15/23 08:02 Dose: 10 mg Trazodone HCl (Trazodone Hcl 50 Mg Tablet) 50 mg PO BEDTIME MRX1 PRN PRN Reason: Insomnia Last Admin: 10/13/23 20:35 Dose: 50 mg Allergies Allergies Allergy/AdvReac Type Severity Reaction Status Date / Time No Known Allergies Allergy Verified 09/21/23 13:00 Assessment & Plan Assessment & Plan (1) Psychosis: Status: Acute Code(s): F29 - Unspecified psychosis not due to a substance or known physiological condition Plan The patient is an elderly female with a past history of auditory hallucinations for the last 7 or 8 years with a prior admission into the hospital at [facility]. She had a past history of depression when she was younger hearing Plan 10/12 continue tx. 10/13 on both haldol and olanzapine-and duloxetine- co headache today- CTP 10/14 some drooling observed - dysarticulate speech or mild hearing impaired? CTP Patient educated on: medication risk/benefits and therapeutic strategies Informed Consent: understands Reason for continued inpatient stay Substantial Risk for: inability to function and rapid decompensation Time Spent With Patient Time: Total time managing care of this patient today ____ minutes.
[2023-10-15 20:00] VITALS: BP 110/58; PULSE 111; RESP 16; TEMP 36.9; O2SAT 93
[2023-10-15] MEDS: traZODone HCL 50 MG TABLET PO (21:06)
[2023-10-15] MEDS: HaloperidoL 1 MG TABLET 3 MG PO (21:06)
[2023-10-15] MEDS: Atorvastatin Calcium 10 MG TABLET PO (21:07)
[2023-10-16 08:45] VITALS: BP 115/67; PULSE 107; RESP 18; TEMP 36; O2SAT 93
[2023-10-16] MEDS: Ascorbic Acid 500 MG TABLET 1000 MG PO (09:41)
[2023-10-16] MEDS: HaloperidoL 1 MG TABLET PO ×2 (09:42→13:24)
[2023-10-16] MEDS: DULoxetine HCl 60 MG CAPSULE.DR PO (09:42)
[2023-10-16] MEDS: OLANZapine 10 MG TABLET PO ×2 (09:42→20:53)
[2023-10-16] MEDS: Memantine HCl 5 MG TABLET PO ×2 (09:42→20:53)
--- NOTE | 2023-10-16 13:22 | P.PNPSI_ITS ---
Subjective Subjective Date of Service: 10/16/23 Reason For Visit: Psychosis Subjective Notes: Conditional Voluntary Interim History: The nursing staff reported the patient had been pleasant withdrawn, the social work assistant reported the reverse meals saw her on Monday. On interview the patient denies new symptoms, waiting for placement. Mental Status Exam Mental Status Exam Patient Appearance: Well Grooomed and Appropriate Patient Orientation: Person and Situation Level of Consciousness: Awake and Appropriate Patient Behavior: Guarded and Passive Mood Description: Withdrawn Affect Description: Constricted Patient Cognition Impaired: Yes Ability to Follow Directions: Good Speech Pattern: Clear Hallucinations: None Delusions: Not Present Thought Process: Distracted and Slowed Thinking Thought Content: positive for [place] and positive for [place]overty of Content Judgement: Fair Diagnostics Vital Signs (24Hr): Vital Signs - 24 hr 10/15/23 20:00 10/16/23 08:45 Temperature 98.5 F 96.8 F Pulse Rate 111 H 107 H Respiratory Rate 16 18 Blood Pressure 110/58 L 115/67 Pulse Oximetry 93 93 Oxygen Delivery Method Room Air Room Air BMI result Body Mass Index 26.7 Labs 09/21/23 13:20 09/22/23 07:56 Imaging Radiology Impressions: ITS Impressions Head CT 09/25/23 11:25 IMPRESSION: 1. Mild to moderate global cerebral volume loss with asymmetric prominence of the left hemispheric sulci which may reflect a slight predilection for the left cerebral hemisphere. Mild chronic microangiopathic changes. 2. Asymmetrically prominent lateral right cerebellar folia may reflect an arachnoid cyst. 3. Some aerosolized secretions in the right sphenoid sinus and posterior right ethmoid air cell can be correlated clinically for acute sinusitis. Medications Medications Current Medications Acetaminophen (Acetaminophen 325 Mg Tablet) 650 mg PO Q6H PRN PRN Reason: Headache/Pain Mild Scale (1-3) Last Admin: 10/14/23 10:01 Dose: 650 mg Al Hydroxide/Mg Hydroxide (Magnesium Hydrox/Alum Hydrox 30 Ml Oral.Susp) 30 ml PO Q6H PRN PRN Reason: Heartburn/Nausea Ascorbic Acid (Ascorbic Acid 500 Mg Tablet) 1,000 mg PO DAILY [facility] Last Admin: 10/16/23 09:41 Dose: 1,000 mg Atorvastatin Calcium (Atorvastatin Calcium 10 Mg Tablet) 10 mg PO BEDTIME [facility] Last Admin: 10/15/23 21:07 Dose: 10 mg Duloxetine HCl (Duloxetine Hcl 60 Mg Capsule.Dr) 60 mg PO DAILY [facility] Last Admin: 10/16/23 09:42 Dose: 60 mg Haloperidol (Haloperidol 1 Mg Tablet) 1 mg PO BID@0830,1330 [facility] Last Admin: 10/16/23 09:42 Dose: 1 mg Haloperidol (Haloperidol 1 Mg Tablet) 3 mg PO BEDTIME [facility] Last Admin: 10/15/23 21:06 Dose: 3 mg Hydroxyzine HCl (Hydroxyzine Hcl 25 Mg Tablet) 25 mg PO Q6H PRN PRN Reason: Anxiety Magnesium Hydroxide (Milk Of Magnesia 30 Ml Oral.Susp) 30 ml PO DAILY PRN PRN Reason: Constipation Memantine (Memantine Hcl 5 Mg Tablet) 5 mg PO BID [facility] Last Admin: 10/16/23 09:42 Dose: 5 mg Olanzapine (Olanzapine 10 Mg Tablet) 10 mg PO BID [facility] Last Admin: 10/16/23 09:42 Dose: 10 mg Trazodone HCl (Trazodone Hcl 50 Mg Tablet) 50 mg PO BEDTIME MRX1 PRN PRN Reason: Insomnia Last Admin: 10/15/23 21:06 Dose: 50 mg Allergies Allergies Allergy/AdvReac Type Severity Reaction Status Date / Time No Known Allergies Allergy Verified 09/21/23 13:00 Assessment & Plan Assessment & Plan (1) Psychosis: Status: Acute Code(s): F29 - Unspecified psychosis not due to a substance or known physiological condition Plan The patient is an elderly female with a past history of auditory hallucinations for the last 7 or 8 years with a prior admission into the hospital at [facility]. She had a past history of depression when she was younger hearing Plan 1. Continue with Zyprexa and Haldol as prescribed. 2. Waiting for placement Reason for continued inpatient stay Substantial Risk for: inability to function, rapid decompensation and med/psych decompensation Time Spent With Patient Time: Total time managing care of this patient today _20___ minutes.
[2023-10-16 20:00] VITALS: BP 95/54; PULSE 100; RESP 18; TEMP 36.1; O2SAT 94
[2023-10-16] MEDS: HaloperidoL 1 MG TABLET 3 MG PO (20:53)
[2023-10-16] MEDS: Atorvastatin Calcium 10 MG TABLET PO (20:53)
[2023-10-17 09:02] VITALS: BP 125/62; PULSE 111; RESP 17; TEMP 36.8; O2SAT 95
[2023-10-17] MEDS: Ascorbic Acid 500 MG TABLET 1000 MG PO (11:16)
[2023-10-17] MEDS: OLANZapine 10 MG TABLET PO ×2 (11:16→21:32)
[2023-10-17] MEDS: HaloperidoL 1 MG TABLET PO ×2 (11:16→13:42)
[2023-10-17] MEDS: DULoxetine HCl 60 MG CAPSULE.DR PO (11:16)
[2023-10-17] MEDS: Memantine HCl 5 MG TABLET PO ×2 (11:16→21:32)
--- NOTE | 2023-10-17 12:11 | P.PNPSI_ITS ---
Subjective Subjective Date of Service: 10/17/23 Reason For Visit: Psychosis Subjective Notes: Conditional Voluntary Interim History: The nursing staff reported the patient had been compliant with treatment, she denies new symptoms. He interview the patient denies new symptoms no side-effects. The health and social care teacher reported that she probably could be discharged next Monday. Mental Status Exam Mental Status Exam Patient Appearance: Appropriate Patient Orientation: Person and Situation Level of Consciousness: Awake and Appropriate Patient Behavior: Appropriate and Passive Mood Description: Withdrawn Affect Description: Constricted Patient Cognition Impaired: Yes Ability to Follow Directions: Good Speech Pattern: Clear Hallucinations: Auditory Delusions: Ideas of Reference Thought Process: Distracted and Slowed Thinking Thought Content: positive for [place] and positive for Circumstantial Judgement: Fair Diagnostics Vital Signs (24Hr): Vital Signs - 24 hr 10/16/23 20:00 10/17/23 09:02 Temperature 97.0 F 98.3 F Pulse Rate 100 111 H Respiratory Rate 18 17 Blood Pressure 95/54 L 125/62 Pulse Oximetry 94 95 Oxygen Delivery Method Room Air Room Air BMI result Body Mass Index 26.7 Labs 09/21/23 13:20 09/22/23 07:56 Imaging Radiology Impressions: ITS Impressions Head CT 09/25/23 11:25 IMPRESSION: 1. Mild to moderate global cerebral volume loss with asymmetric prominence of the left hemispheric sulci which may reflect a slight predilection for the left cerebral hemisphere. Mild chronic microangiopathic changes. 2. Asymmetrically prominent lateral right cerebellar folia may reflect an arachnoid cyst. 3. Some aerosolized secretions in the right sphenoid sinus and posterior right ethmoid air cell can be correlated clinically for acute sinusitis. Medications Medications Current Medications Acetaminophen (Acetaminophen 325 Mg Tablet) 650 mg PO Q6H PRN PRN Reason: Headache/Pain Mild Scale (1-3) Last Admin: 10/14/23 10:01 Dose: 650 mg Al Hydroxide/Mg Hydroxide (Magnesium Hydrox/Alum Hydrox 30 Ml Oral.Susp) 30 ml PO Q6H PRN PRN Reason: Heartburn/Nausea Ascorbic Acid (Ascorbic Acid 500 Mg Tablet) 1,000 mg PO DAILY [facility] Last Admin: 10/17/23 11:16 Dose: 1,000 mg Atorvastatin Calcium (Atorvastatin Calcium 10 Mg Tablet) 10 mg PO BEDTIME [facility] Last Admin: 10/16/23 20:53 Dose: 10 mg Duloxetine HCl (Duloxetine Hcl 60 Mg Capsule.) 60 mg PO DAILY [facility] Last Admin: 10/17/23 11:16 Dose: 60 mg Haloperidol (Haloperidol 1 Mg Tablet) 1 mg PO BID@0830,1330 [facility] Last Admin: 10/17/23 11:16 Dose: 1 mg Haloperidol (Haloperidol 1 Mg Tablet) 3 mg PO BEDTIME [facility] Last Admin: 10/16/23 20:53 Dose: 3 mg Hydroxyzine HCl (Hydroxyzine Hcl 25 Mg Tablet) 25 mg PO Q6H PRN PRN Reason: Anxiety Magnesium Hydroxide (Milk Of Magnesia 30 Ml Oral.Susp) 30 ml PO DAILY PRN PRN Reason: Constipation Memantine (Memantine Hcl 5 Mg Tablet) 5 mg PO BID [facility] Last Admin: 10/17/23 11:16 Dose: 5 mg Olanzapine (Olanzapine 10 Mg Tablet) 10 mg PO BID [facility] Last Admin: 10/17/23 11:16 Dose: 10 mg Trazodone HCl (Trazodone Hcl 50 Mg Tablet) 50 mg PO BEDTIME MRX1 PRN PRN Reason: Insomnia Last Admin: 10/15/23 21:06 Dose: 50 mg Allergies Allergies Allergy/AdvReac Type Severity Reaction Status Date / Time No Known Allergies Allergy Verified 09/21/23 13:00 Assessment & Plan Assessment & Plan (1) Psychosis: Status: Acute Code(s): F29 - Unspecified psychosis not due to a substance or known physiological condition Plan The patient is an elderly female with a past history of auditory hallucinations for the last 7 or 8 years with a prior admission into the hospital at [facility]. She had a past history of depression when she was younger hearing Plan 1. Continue with Zyprexa and Haldol as prescribed. 2. Waiting for placement Reason for continued inpatient stay Substantial Risk for: inability to function, rapid decompensation and med/psych decompensation Time Spent With Patient Time: Total time managing care of this patient today __20__ minutes.
[2023-10-17 20:00] VITALS: BP 124/61; PULSE 100; RESP 16; TEMP 36.6; O2SAT 93
[2023-10-17] MEDS: HaloperidoL 1 MG TABLET 3 MG PO (21:31)
[2023-10-17] MEDS: Atorvastatin Calcium 10 MG TABLET PO (21:31)
[2023-10-17] MEDS: traZODone HCL 50 MG TABLET PO (21:32)
[2023-10-18 08:41] VITALS: BP 105/55; PULSE 112; RESP 16; TEMP 36.2; O2SAT 93
[2023-10-18] MEDS: HaloperidoL 1 MG TABLET PO ×2 (08:45→13:18)
[2023-10-18] MEDS: OLANZapine 10 MG TABLET PO ×2 (08:45→21:42)
[2023-10-18] MEDS: Memantine HCl 5 MG TABLET PO ×2 (08:45→21:42)
[2023-10-18] MEDS: DULoxetine HCl 60 MG CAPSULE.DR PO (08:45)
[2023-10-18] MEDS: Ascorbic Acid 500 MG TABLET 1000 MG PO (08:45)
--- NOTE | 2023-10-18 12:29 | HO.PSYCHPN ---
Subjective Subjective Date of Service: 10/18/23 Reason For Visit: Psychosis Subjective Notes: Conditional Voluntary Interim History: The nursing staff reported the patient shows some flat affect but she was able to participate in groups very pleasant and cooperative. She slept 8 hours. The social insurance specialist reported that she has accepted the reader meals and she will leave tomorrow. On interview the patient denies new symptoms, eager to go back to a care home facility Mental Status Exam Mental Status Exam Patient Appearance: Appropriate Patient Orientation: Person and Situation Level of Consciousness: Awake and Appropriate Patient Behavior: Guarded and Passive Mood Description: Withdrawn Affect Description: Constricted Patient Cognition Impaired: Yes Ability to Follow Directions: Good Speech Pattern: Clear Hallucinations: None Delusions: Ideas of Reference Thought Process: Slowed Thinking Thought Content: positive for [place] and positive for Poverty of Content Judgement: Fair Diagnostics Vital Signs (24Hr): Vital Signs - 24 hr 10/17/23 20:00 10/18/23 08:41 Temperature 98 F 97.1 F Pulse Rate 100 112 H Respiratory Rate 16 16 Blood Pressure 124/61 105/55 L Pulse Oximetry 93 93 Oxygen Delivery Method Room Air Room Air BMI result Body Mass Index 26.7 Labs 09/21/23 13:20 09/22/23 07:56 Imaging Radiology Impressions: ITS Impressions Head CT 09/25/23 11:25 IMPRESSION: 1. Mild to moderate global cerebral volume loss with asymmetric prominence of the left hemispheric sulci which may reflect a slight predilection for the left cerebral hemisphere. Mild chronic microangiopathic changes. 2. Asymmetrically prominent lateral right cerebellar folia may reflect an arachnoid cyst. 3. Some aerosolized secretions in the right sphenoid sinus and posterior right ethmoid air cell can be correlated clinically for acute sinusitis. Medications Medications Current Medications Acetaminophen (Acetaminophen 325 Mg Tablet) 650 mg PO Q6H PRN PRN Reason: Headache/Pain Mild Scale (1-3) Last Admin: 10/14/23 10:01 Dose: 650 mg Al Hydroxide/Mg Hydroxide (Magnesium Hydrox/Alum Hydrox 30 Ml Oral.Susp) 30 ml PO Q6H PRN PRN Reason: Heartburn/Nausea Ascorbic Acid (Ascorbic Acid 500 Mg Tablet) 1,000 mg PO DAILY ROSA Last Admin: 10/18/23 08:45 Dose: 1,000 mg Atorvastatin Calcium (Atorvastatin Calcium 10 Mg Tablet) 10 mg PO BEDTIME ROSA Last Admin: 10/17/23 21:31 Dose: 10 mg Duloxetine HCl (Duloxetine Hcl 60 Mg Capsule.Dr) 60 mg PO DAILY [facility] Last Admin: 10/18/23 08:45 Dose: 60 mg Haloperidol (Haloperidol 1 Mg Tablet) 1 mg PO BID@0830,1330 [facility] Last Admin: 10/18/23 08:45 Dose: 1 mg Haloperidol (Haloperidol 1 Mg Tablet) 3 mg PO BEDTIME [facility] Last Admin: 10/17/23 21:31 Dose: 3 mg Hydroxyzine HCl (Hydroxyzine Hcl 25 Mg Tablet) 25 mg PO Q6H PRN PRN Reason: Anxiety Magnesium Hydroxide (Milk Of Magnesia 30 Ml Oral.Susp) 30 ml PO DAILY PRN PRN Reason: Constipation Memantine (Memantine Hcl 5 Mg Tablet) 5 mg PO BID [facility] Last Admin: 10/18/23 08:45 Dose: 5 mg Olanzapine (Olanzapine 10 Mg Tablet) 10 mg PO BID [facility] Last Admin: 10/18/23 08:45 Dose: 10 mg Trazodone HCl (Trazodone Hcl 50 Mg Tablet) 50 mg PO BEDTIME MRX1 PRN PRN Reason: Insomnia Last Admin: 10/17/23 21:32 Dose: 50 mg Allergies Allergies Allergy/AdvReac Type Severity Reaction Status Date / Time No Known Allergies Allergy Verified 09/21/23 13:00 Assessment & Plan Assessment & Plan (1) Psychosis: Status: Acute Code(s): F29 - Unspecified psychosis not due to a substance or known physiological condition Plan The patient is an elderly female with a past history of auditory hallucinations for the last 7 or 8 years with a prior admission into the hospital at [facility]. She had a past history of depression when she was younger hearing Plan 1. Continue with Zyprexa and Haldol as prescribed. 2. Waiting for placement Reason for continued inpatient stay Substantial Risk for: inability to function, rapid decompensation and med/psych decompensation Time Spent With Patient Time: Total time managing care of this patient today __20__ minutes.
--- NOTE | 2023-10-18 14:28 | PM.PSYDC ---
DS: Providers Provider Date of Service: 10/18/23 Date of admission: 09/21/23 17:09 Date of discharge: 10/19/23 Primary care physician: Reentta Salgado MD Consults: 09/22/23 13:34 Consult to Hospitalist Routine Comment: Consulting Provider: Hospitalist Reason For Exam: UTI DS: Diagnosis Discharge Diagnosis (1) Psychosis: Status: Acute DS: Medications Discharge Medications Home Medications: Home Medications ?Medication ?Instructions ?Recorded ?Confirmed ascorbic acid (vitamin C) 1,000 mg 1,000 mg PO DAILY 09/21/23 09/21/23 tablet (Vitamin C) atorvastatin 10 mg tablet 10 mg PO BEDTIME 09/21/23 09/21/23 bupropion HCl 75 mg tablet 75 mg PO BID 09/21/23 09/21/23 duloxetine 60 mg capsule,delayed 60 mg PO DAILY 09/21/23 09/21/23 release olanzapine 10 mg tablet 10 mg PO BID psychosis 09/21/23 09/21/23 secukinumab 150 mg/mL subcutaneous 150 mg subcut Q28D 09/21/23 09/22/23 pen injector (Cosentyx Pen 300 mg/2 Pens () Mental Status Exam Mental Status Exam Patient Appearance: Well Grooomed and Appropriate Patient Orientation: Person and Situation Level of Consciousness: Awake and Appropriate Patient Behavior: Guarded and Passive Mood Description: Calm Affect Description: Constricted Patient Cognition Impaired: Yes Ability to Follow Directions: Good Speech Pattern: Clear Hallucinations: None Delusions: Not Present Thought Process: Distracted and Slowed Thinking Thought Content: positive for Circumstantial and positive for Poverty of Content Judgement: Fair Data Data Completed and Pending Completed studies during hospitalization [Text1]: 09/21/23 Unknown Urine clean catch - Clean Catch Midstream Urine Culture - Final Imaging Diagnostic Imaging Impressions Head CT 09/25/23 11:25 IMPRESSION: 1. Mild to moderate global cerebral volume loss with asymmetric prominence of the left hemispheric sulci which may reflect a slight predilection for the left cerebral hemisphere. Mild chronic microangiopathic changes. 2. Asymmetrically prominent lateral right cerebellar folia may reflect an arachnoid cyst. 3. Some aerosolized secretions in the right sphenoid sinus and posterior right ethmoid air cell can be correlated clinically for acute sinusitis. DS: Summary Hospital Course Hospital Course: The patient is an 78-year-old female with a past history of hallucinations and dementia who was initially admitted to this hospital for exacerbation of psychosis. Please see the HPI of the admission note for further details. On admission, she was fully medically workout. She was pleasant cooperative with auditory hallucinations mostly noises and voices but the patient was able to different she ate internal stimuli. We did a CT scan head without contrast with no evidence of stroke. Apparently the patient has been having these symptoms for several months. We had several family meetings and the daughter reported that she had been paranoid and also have behavioral disturbances in correlation with her paranoia. Previously she was been admitted into the hospital for similar presentation and she was treated with Zyprexa 10 mg p.o. b.i.d. that she had been fully compliant. Even though the patient has been taking Zyprexa 10 mg p.o. b.i.d. she was still experimenting auditory hallucinations. We discussed risks, benefits, side-effects and alternatives and she agreed to start a 2nd antipsychotics. We added Haldol 1 mg p.o. b.i.d. and 3 mg p.o. q.h.s. total dose of 5 mg a day with for tolerability and no evidence of EPS. The patient reported improvement of her hallucinations even though that she has sporadic voices but she was able to recognize internal stimuli. The patient was seen going to groups pleasant cooperative, we did functional testing and it was clear that the patient needed more help. We decided to transfer the patient to an assisted living facility and the family and the patient were in agreement. Since there were no safety concerns discharge planning was discussed. Time spent discussing smoking cessation with patient: 3 to 10 minutes Status at Discharge Cognitive/behavioral status at discharge: Impaired at baseline Functional status at discharge: independent ambulation Overall status at discharge: patient is back to baseline Time Spent with Patient Time attestation: Total time managing care of this patient today _30___ minutes. Time spent: Less than 30 minutes Discharge Plan Discharge Anticipated Discharge Date/Time: 10/19/23 10:46 Patient Disposition: Xfer SNF Discharge Diagnosis: Psychosis NOS Dementia Referrals: Marian Davalos CNP [Nurse Practitioner] - 10/31/23 3:45 pm (Telehealth appointment has been made for at 3:45pm. If any questions or concerns please call the number listed) Renetta Salgado MD [Primary Care Provider] - 1 Week Discharge Medications: New trazodone 50 mg Tablet 50 mg PO BEDTIME MRX1 PRN (Reason: Insomnia) 30 Days Qty: 30 0RF haloperidol 1 mg Tablet 3 mg PO BEDTIME 30 Days Qty: 90 0RF haloperidol 1 mg Tablet 1 mg PO BID@0830,1330 30 Days Qty: 60 0RF memantine 5 mg Tablet 5 mg PO BID 30 Days Qty: 60 0RF Continued ascorbic acid (vitamin C) [Vitamin C] 1,000 mg tablet 1,000 mg PO DAILY Qty: 30 0RF atorvastatin 10 mg tablet 10 mg PO BEDTIME 30 Days Qty: 30 0RF olanzapine 10 mg tablet 10 mg PO BID 30 Days Qty: 60 0RF duloxetine 60 mg capsule,delayed release(DR/EC) 60 mg PO DAILY 30 Days Qty: 30 0RF Discontinued bupropion HCl 75 mg tablet 75 mg PO BID Cosentyx Pen (2 Pens) 150 mg/mL pen injector 150 mg subcut Q28D Discharge Orders: Discharge Order (Routine); Ordered 10/19/23 Ordered By: Miguel Angel Cameron Diet: Advance to usual diet Activity on Discharge: As tolerated Stand Alone Forms: Patient Portal Discharge page Print Language: Paraguayan Care Plan Goals: Care plan goals achieved in this admission Health Concerns: Continue treatment with outpatient providers Plan of Treatment: Continue psychiatric to remain as an outpatient. Assessment: Elderly female with a past history of dementia and psychosis who responded with a combination of Zyprexa and Haldol with for tolerability and no evidence of EPS. The patient at this moment is ready to be discharged to the community to a proper facility.
[2023-10-18 20:00] VITALS: BP 118/61; PULSE 105; RESP 16; TEMP 36.9; O2SAT 93
[2023-10-18] MEDS: Atorvastatin Calcium 10 MG TABLET PO (21:42)
[2023-10-18] MEDS: traZODone HCL 50 MG TABLET PO (21:42)
[2023-10-18] MEDS: HaloperidoL 1 MG TABLET 3 MG PO (21:42)
[2023-10-19 08:00] VITALS: BP 172/79; PULSE 100; RESP 16; TEMP 36.5; O2SAT 96
[2023-10-19] MEDS: Ascorbic Acid 500 MG TABLET 1000 MG PO (08:17)
[2023-10-19] MEDS: OLANZapine 10 MG TABLET PO (08:17)
[2023-10-19] MEDS: DULoxetine HCl 60 MG CAPSULE.DR PO (08:17)
[2023-10-19] MEDS: Memantine HCl 5 MG TABLET PO (08:17)
[2023-10-19] MEDS: HaloperidoL 1 MG TABLET PO ×2 (08:18→13:04)
[2023-10-19 09:45] VITALS: BP 127/78
--- NOTE | 2023-10-19 09:48 | PC.NURSE ---
At 8:00 am BP 172/79, P 100. Re-check an hour and half later for BP 127/78. Pt denies pain or discomfort. Provider Dr Silveira notified.
--- NOTE | 2023-10-19 16:05 | PC.NURSE ---
Pt alert and oriented. Reported readiness for discharge. Given info on f/u appointments and medications. Pt left the unit at 14:00 with belongings, transferred via [facility] to [facility].
== END 2023-10-19 14:00 | disposition skilled nursing facility (03) | DRG 885 ==
LOC: HO.ED 15:21 → HO.PGERI 17:50
PROVIDERS: Physician Assistant Medical; Admitting Provider Psychiatry & Neurology Psychiatry; Emergency Provider Emergency Medicine; PCP Internal Medicine; Visit Provider Psychiatry & Neurology Psychiatry
DX: F29 Unspecified psychosis not due to a substance or known physiological condition (principal); F03.90 Unspecified dementia, unspecified severity, without behavioral disturbance, psychotic disturbance, mood disturbance, and anxiety; Z79.899 Other long term (current) drug therapy
CPT/HCPCS: 36415; 70450; 80053; 80061; 80307; 81001; 83690; 83735; 85025; 87086; 93005; 99285; S9485

== ENCOUNTER → 2023-09-21 13:01 | Outpatient (BNV) | payer OTHER, SELFPAY | PROVIDERS: Admitting Provider Psychiatry & Neurology Psychiatry; Emergency Provider Emergency Medicine; PCP Internal Medicine; Visit Provider Internal Medicine Cardiovascular Disease | DX: R00.0 Tachycardia, unspecified (principal); R94.31 Abnormal electrocardiogram [ECG] [EKG] | CPT/HCPCS: 93010 ==

== ENCOUNTER → 2023-09-21 17:09 | Outpatient (BNV) | payer OTHER, SELFPAY | PROVIDERS: Admitting Provider Psychiatry & Neurology Psychiatry; Emergency Provider Emergency Medicine; PCP Internal Medicine; Visit Provider Psychiatry & Neurology Psychiatry | DX: F29 Unspecified psychosis not due to a substance or known physiological condition (principal) | CPT/HCPCS: 99222; 99231; 99232; 99238 ==